=== PATIENT | female | born 1945 | race Caucasian/White ===

== ENCOUNTER 2016-11-04 10:31 | Emergency (ER) | payer MEDICARE ==
[~2016-11-04] VITALS: Ht 157.5 cm; Wt 77.7 kg
[~2016-11-04 10:31] MED LIST: ALBU90AE INH; ALBUTEROL INH; ALPR0.5T6 PO; AMLO5TAB2 PO; AMOX1TAB12 PO; ASPI-496 PO; ATOR40TA78 PO; AZIT500T4 PO; BACI28.33 TP; CARV25TA12 PO; CEFD300C2 PO; CHOL20003 PO; CLON0.3T PO; CYAN100063 PO; ERGO2000 PO; ERGO500017 PO; FAMO-79 PO; FENO145T32 PO; FURO-92 PO; Furosemide PO; GUAI10LI PO; HYDR-3240 PO; HYOS0.375 PO; LABE100T3 PO; LASIX PO; LINA5TAB PO; LISI40TA PO; MAGN400T7 PO; METF500T27 PO; METO5TAB5 PO; ONDA4TAB7 PO; PANT40TA5 PO; POTA20TA14 PO; PRED5TAB PO; SEVE800T PO; UBID200C4 PO
[2016-11-04] MEDS ORDERED: ALPR-475 PO (11:34)
[2016-11-04] MEDS ORDERED: UBID100C11 PO (11:34)
[2016-11-04] MEDS ORDERED: FURO40TA6 PO (11:34)
[2016-11-04] MEDS ORDERED: ALBU2.5V NEB (11:34)
[2016-11-04] MEDS ORDERED: DIAZEPAM 5 MG TABLET PO ONE (12:00)
[2016-11-04] MEDS ORDERED: OXYcodone/APAP 5/325MG TABLET PO ONE (12:00)
[2016-11-04] MEDS ORDERED: DIAZEPAM 5 MG TABLET ONE (12:04)
[2016-11-04] MEDS ORDERED: OXYcodone/APAP 5/325MG TABLET ONE (12:05)
[2016-11-04 13:53] VITALS: BP 115/41
== END 2016-11-04 14:17 | disposition home or self-care (01) ==
LOC: ED 12:37
DX: M54.16 Radiculopathy, lumbar region (principal); M79.652 Pain in left thigh; I11.0 Hypertensive heart disease with heart failure; I50.9 Heart failure, unspecified; E11.9 Type 2 diabetes mellitus without complications; E16.2 Hypoglycemia, unspecified; E78.00 Pure hypercholesterolemia, unspecified; K21.9 Gastro-esophageal reflux disease without esophagitis; Z90.49 Acquired absence of other specified parts of digestive tract
CPT/HCPCS: 72131; 99284

== ENCOUNTER 2016-11-13 04:55 | Inpatient (IN) | payer MEDICARE ==
[~2016-11-13] VITALS: Ht 157.5 cm; Wt 75.0 kg
[2016-11-13] VITALS (7 sets, daily range): BP systolic 115–143; BP diastolic 53–81
[~2016-11-13 04:55] MED LIST changes: +ALBU2.5V NEB; +ALPR-475 PO; +FURO40TA6 PO; +UBID100C11 PO
[2016-11-13] MEDS ORDERED: PANTOPRAZOLE 80 MG in SODIUM CHLORIDE 0.9% 50 ML IVPB ONE (05:15)
[2016-11-13] MEDS ORDERED: SODIUM CHLORIDE 0.9% 1,000 ML IV ONE (05:15)
[2016-11-13] MEDS ORDERED: SODIUM CHLORIDE 0.9% 1,000ML IVBOLUS ONE (05:30)
[2016-11-13] MEDS ORDERED: SODIUM CHLORIDE FLUSH 10ML SYR IVF ONE (05:30)
[2016-11-13 05:44] LABS: HEMOGLOBIN 8.3 g/dL (11.7-16.4)
[2016-11-13 05:55] LABS: BLOOD UREA NITROGEN 38 mg/dL (7-18)
[2016-11-13 05:59] LABS: ASPARTATE AMINO TRANSFERASE 25 U/L (15-37)
[2016-11-13] MEDS ORDERED: GABA300C10 PO (08:05)
[2016-11-13] MEDS ORDERED: [UNRECOGNIZED DRUG - OTHER] (08:07)
[2016-11-13] MEDS: GABAPENTIN 300 MG CAPSULE PO SCH ×3 (09:30→22:09)
[2016-11-13] MEDS ORDERED: MOVIPREP POWDER 1 PREP KIT PO ONE (09:30)
[2016-11-13] MEDS: PANTOPRAZOLE 40 MG IV IVPush SCH ×2 (10:00→22:06)
[2016-11-13] MEDS ORDERED: DOCUSATE 100 MG CAPSULE PO PRN (10:00)
[2016-11-13] MEDS ORDERED: LABETALOL 5MG/ML, 20ML IV PRN (10:00)
[2016-11-13] MEDS ORDERED: HYDROcodone/APAP 5/325 TABLET PO PRN (10:00)
[2016-11-13] MEDS ORDERED: MORPHINE SULFATE 4 MG/ML, 1ML IVPush PRN (10:00)
[2016-11-13] MEDS ORDERED: ALBUTEROL SULFATE 2.5MG/0.5ML NPPB PRN (10:00)
[2016-11-13] MEDS: SEVELAMER 800MG TABLET PO SCH ×2 (11:00→15:49)
[2016-11-13 11:09] LABS: HEMOGLOBIN 7.3 g/dL (11.7-16.4)
[2016-11-13] MEDS ORDERED: ARANESP 100 MCG/ML **ESRD SQ SCH (12:00)
[2016-11-13 12:31] LABS: PTH INTACT INTERPRETATION ** Comment **
[2016-11-13 12:55] LABS: PARATHYROID HORMONE INTACT 178.8 pg/mL (14-72)
[2016-11-13] MEDS: GUAIFENESIN/DM 200-20MG, 10ML UDC PO PRN (15:49)
[2016-11-13] MEDS: ARANESP 100 MCG/ML **ESRD SQ SCH (15:50)
[2016-11-13 17:38] LABS: HEMOGLOBIN 8.7 g/dL (11.7-16.4)
[2016-11-13] MEDS: ATORVASTATIN 40 MG TABLET PO SCH (20:56)
[2016-11-13] MEDS: CARVEDILOL 25 MG TABLET PO SCH ×2 (20:56→21:00)
[2016-11-13] MEDS: PROAIR INH SCH (20:57)
[2016-11-13] MEDS: [UNRECOGNIZED DRUG - OTHER] INH SCH (20:57)
[2016-11-13] MEDS ORDERED: GABAPENTIN 300 MG CAPSULE PO SCH (21:00)
[2016-11-13 23:58] LABS: HEMOGLOBIN 9.6 g/dL (11.7-16.4)
[2016-11-14 02:27] VITALS: BP 147/70
[2016-11-14 05:38] LABS: BLOOD UREA NITROGEN 23 mg/dL (7-18)
[2016-11-14 05:43] LABS: ASPARTATE AMINO TRANSFERASE 26 U/L (15-37)
[2016-11-14] MEDS: SEVELAMER 800MG TABLET PO SCH ×3 (07:00→18:16)
[2016-11-14 07:14] VITALS: BP 142/74
[2016-11-14] MEDS ORDERED: PROPOFOL 10 MG/ML, 50ML ONE (08:00)
[2016-11-14] MEDS ORDERED: DILTIAZEM 5 MG/ML, 5ML ONE (08:34)
[2016-11-14] MEDS ORDERED: DILTIAZEM 5 MG/ML, 5ML IVPush ONE ×2 (09:00)
[2016-11-14] MEDS: GABAPENTIN 300 MG CAPSULE PO SCH ×2 (09:27→22:41)
[2016-11-14] MEDS: CARVEDILOL 25 MG TABLET PO SCH ×2 (09:27→21:00)
[2016-11-14] MEDS: [UNRECOGNIZED DRUG - OTHER] INH SCH ×2 (09:28→21:00)
[2016-11-14] MEDS: PROAIR INH SCH ×2 (09:28→21:00)
[2016-11-14 10:00] LABS: HEP B SURF. AB < 3.1 mIU/mL (0.0-10.0)
[2016-11-14] MEDS ORDERED: FILTER 0.22 MICRON FOR AMIODARONE IV PRN (10:00)
[2016-11-14] MEDS ORDERED: AMIODARONE 150 MG in DEXTROSE 5% 100 ML IV ONE ×2 (10:00→14:00)
[2016-11-14] MEDS: PANTOPRAZOLE 40 MG IV IVPush SCH ×2 (10:29→22:52)
[2016-11-14] MEDS: AMIODARONE 900 MG in DEXTROSE 5% 482 ML IV PRN (10:43)
[2016-11-14] MEDS: GUAIFENESIN/DM 200-20MG, 10ML UDC PO PRN (11:15)
[2016-11-14] MEDS: INSULIN ASPART 100 UNITS/ML, PEN SQ-INSULIN SCH ×3 (11:16→21:00)
[2016-11-14 12:46] VITALS: BP 148/79
[2016-11-14 18:45] VITALS: BP 93/63
[2016-11-14 22:38] VITALS: BP 103/63
[2016-11-14] MEDS: ATORVASTATIN 40 MG TABLET PO SCH (22:41)
[2016-11-15 00:52] VITALS: BP_SYST 87; BP_SYST 96; BP_DIAS 45; BP_DIAS 59
[2016-11-15] MEDS: GUAIFENESIN/DM 200-20MG, 10ML UDC PO PRN ×3 (03:45→22:58)
[2016-11-15 05:48] LABS: BLOOD UREA NITROGEN 31 mg/dL (7-18)
[2016-11-15 07:59] VITALS: BP 86/58
[2016-11-15] MEDS: INSULIN ASPART 100 UNITS/ML, PEN SQ-INSULIN SCH ×4 (08:28→20:52)
[2016-11-15] MEDS: SEVELAMER 800MG TABLET PO SCH ×3 (08:59→16:27)
[2016-11-15] MEDS: CARVEDILOL 25 MG TABLET PO SCH ×3 (08:59→20:51)
[2016-11-15] MEDS: GABAPENTIN 300 MG CAPSULE PO SCH ×2 (09:00→20:50)
[2016-11-15] MEDS: GUAIFENESIN 200 MG TABLET PO SCH ×2 (09:00→20:51)
[2016-11-15] MEDS: PANTOPRAZOLE 40 MG IV IVPush SCH ×2 (09:00→20:51)
[2016-11-15] MEDS: [UNRECOGNIZED DRUG - OTHER] INH SCH ×2 (09:01→20:51)
[2016-11-15] MEDS: PROAIR INH SCH ×2 (09:01→20:51)
[2016-11-15] MEDS ORDERED: AMIODARONE 150 MG in DEXTROSE 5% 100 ML IV ONE ×2 (11:30→16:00)
[2016-11-15 13:10] VITALS: BP 116/77
[2016-11-15] MEDS: AMIODARONE 900 MG in DEXTROSE 5% 482 ML IV PRN (13:12)
[2016-11-15 14:01] VITALS: BP 113/66
[2016-11-15 19:44] VITALS: BP 94/66
[2016-11-15] MEDS: ATORVASTATIN 40 MG TABLET PO SCH (20:50)
[2016-11-16] VITALS (9 sets, daily range): BP systolic 89–132; BP diastolic 52–77
[2016-11-16 05:42] LABS: BLOOD UREA NITROGEN 38 mg/dL (7-18)
[2016-11-16 05:44] LABS: HEMOGLOBIN 8.1 g/dL (11.7-16.4)
[2016-11-16] MEDS: INSULIN ASPART 100 UNITS/ML, PEN SQ-INSULIN SCH ×4 (07:00→21:00)
[2016-11-16] MEDS: SEVELAMER 800MG TABLET PO SCH ×3 (08:10→16:26)
[2016-11-16] MEDS: PROAIR INH SCH ×2 (09:00→21:00)
[2016-11-16] MEDS: [UNRECOGNIZED DRUG - OTHER] INH SCH ×2 (09:00→21:00)
[2016-11-16] MEDS: GABAPENTIN 300 MG CAPSULE PO SCH ×2 (09:54→21:51)
[2016-11-16] MEDS: GUAIFENESIN 200 MG TABLET PO SCH ×2 (09:54→21:52)
[2016-11-16] MEDS: PANTOPRAZOLE 40 MG IV IVPush SCH ×2 (09:54→23:35)
[2016-11-16] MEDS: CARVEDILOL 25 MG TABLET PO SCH ×2 (09:54→21:51)
[2016-11-16] MEDS: AMIODARONE 200 MG TABLET PO SCH ×2 (12:07→21:52)
[2016-11-16] MEDS: ATORVASTATIN 40 MG TABLET PO SCH (21:51)
[2016-11-17 01:55] VITALS: BP 112/69
[2016-11-17 05:18] LABS: HEMOGLOBIN 7.5 g/dL (11.7-16.4)
[2016-11-17 05:31] LABS: BLOOD UREA NITROGEN 18 mg/dL (7-18)
[2016-11-17] MEDS: INSULIN ASPART 100 UNITS/ML, PEN SQ-INSULIN SCH ×4 (07:00→21:00)
[2016-11-17 07:18] VITALS: BP 107/64
[2016-11-17] MEDS: SEVELAMER 800MG TABLET PO SCH ×3 (08:02→16:47)
[2016-11-17] MEDS: [UNRECOGNIZED DRUG - OTHER] INH SCH ×2 (09:00→21:00)
[2016-11-17] MEDS: PROAIR INH SCH ×2 (09:00→21:00)
[2016-11-17] MEDS: GUAIFENESIN 200 MG TABLET PO SCH ×2 (10:22→21:15)
[2016-11-17] MEDS: PANTOPRAZOLE 40 MG IV IVPush SCH ×2 (10:22→21:15)
[2016-11-17] MEDS: AMIODARONE 200 MG TABLET PO SCH ×2 (10:23→21:16)
[2016-11-17] MEDS: CARVEDILOL 25 MG TABLET PO SCH ×2 (10:23→21:00)
[2016-11-17] MEDS: GABAPENTIN 300 MG CAPSULE PO SCH ×2 (10:23→21:16)
[2016-11-17 13:33] VITALS: BP 118/65
[2016-11-17] MEDS: ONDANSETRON 2MG/ML, 2ML IVP PRN (14:46)
[2016-11-17 18:31] VITALS: BP 112/64
[2016-11-17 21:12] VITALS: BP 110/62
[2016-11-17] MEDS: ATORVASTATIN 40 MG TABLET PO SCH (21:16)
[2016-11-17 22:30] VITALS: BP 98/60
[2016-11-18 02:09] VITALS: BP_SYST 101; BP_SYST 153; BP_DIAS 57; BP_DIAS 71
[2016-11-18 05:33] LABS: HEMOGLOBIN 7.5 g/dL (11.7-16.4)
[2016-11-18 05:36] LABS: BLOOD UREA NITROGEN 32 mg/dL (7-18)
[2016-11-18 06:07] LABS: ANISOCYTOSIS 1+; POLYCHROMASIA 1+; SPHEROCYTES 1+
[2016-11-18 06:09] LABS: MICROCYTOSIS 1+
[2016-11-18] MEDS: INSULIN ASPART 100 UNITS/ML, PEN SQ-INSULIN SCH ×4 (07:00→20:32)
[2016-11-18 07:44] VITALS: BP 133/67
[2016-11-18] MEDS: GABAPENTIN 300 MG CAPSULE PO SCH ×2 (08:08→20:30)
[2016-11-18] MEDS: AMIODARONE 200 MG TABLET PO SCH ×2 (08:08→20:30)
[2016-11-18] MEDS: GUAIFENESIN 200 MG TABLET PO SCH ×2 (08:08→20:32)
[2016-11-18] MEDS: SEVELAMER 800MG TABLET PO SCH ×3 (08:08→16:44)
[2016-11-18] MEDS: CARVEDILOL 25 MG TABLET PO SCH ×2 (08:09→21:00)
[2016-11-18] MEDS: PROAIR INH SCH ×2 (08:09→20:29)
[2016-11-18] MEDS: [UNRECOGNIZED DRUG - OTHER] INH SCH ×2 (08:09→20:29)
[2016-11-18 12:06] VITALS: BP 139/64
[2016-11-18 12:20] VITALS: BP 143/67
[2016-11-18] MEDS: ONDANSETRON 2MG/ML, 2ML IVP PRN (15:20)
[2016-11-18] MEDS: PANTOPROZOLE 40MG TABLET PO SCH ×2 (15:48→20:30)
[2016-11-18] MEDS: COLCHICINE 0.6 MG TABLET PO SCH (18:14)
[2016-11-18 19:20] VITALS: BP 96/67
[2016-11-18] MEDS: ATORVASTATIN 40 MG TABLET PO SCH (20:30)
[2016-11-19 02:40] VITALS: BP 117/67
[2016-11-19] MEDS: INSULIN ASPART 100 UNITS/ML, PEN SQ-INSULIN SCH ×4 (07:00→20:49)
[2016-11-19 07:03] VITALS: BP 139/72
[2016-11-19] MEDS: PANTOPROZOLE 40MG TABLET PO SCH ×2 (07:57→21:11)
[2016-11-19] MEDS: SEVELAMER 800MG TABLET PO SCH ×3 (07:57→15:59)
[2016-11-19] MEDS: PROAIR INH SCH ×2 (09:00→21:00)
[2016-11-19] MEDS: [UNRECOGNIZED DRUG - OTHER] INH SCH ×2 (09:00→21:00)
[2016-11-19] MEDS ORDERED: ERGOCALCIFEROL 50,000 UNIT CAPSULE PO SCH (10:00)
[2016-11-19 10:18] LABS: HEMOGLOBIN 8.7 g/dL (11.7-16.4)
[2016-11-19] MEDS: GABAPENTIN 300 MG CAPSULE PO SCH ×2 (10:23→21:11)
[2016-11-19] MEDS: CARVEDILOL 25 MG TABLET PO SCH ×2 (10:23→21:10)
[2016-11-19] MEDS: AMIODARONE 200 MG TABLET PO SCH ×2 (10:23→21:10)
[2016-11-19] MEDS: GUAIFENESIN 200 MG TABLET PO SCH ×2 (10:23→21:11)
[2016-11-19] MEDS: COLCHICINE 0.6 MG TABLET PO SCH (10:23)
[2016-11-19 13:00] VITALS: BP 88/57
[2016-11-19 19:31] VITALS: BP 109/63
[2016-11-19] MEDS: ATORVASTATIN 40 MG TABLET PO SCH (21:10)
[2016-11-20 01:14] VITALS: BP 171/66
[2016-11-20 01:57] VITALS: BP 117/68
[2016-11-20] MEDS: INSULIN ASPART 100 UNITS/ML, PEN SQ-INSULIN SCH ×4 (07:00→21:00)
[2016-11-20 07:25] VITALS: BP 131/72
[2016-11-20] MEDS: PANTOPROZOLE 40MG TABLET PO SCH ×2 (08:05→22:05)
[2016-11-20] MEDS: SEVELAMER 800MG TABLET PO SCH ×3 (08:57→17:20)
[2016-11-20] MEDS: COLCHICINE 0.6 MG TABLET PO SCH (08:57)
[2016-11-20] MEDS: GUAIFENESIN 200 MG TABLET PO SCH ×2 (08:57→22:05)
[2016-11-20] MEDS: [UNRECOGNIZED DRUG - OTHER] INH SCH ×2 (08:58→21:00)
[2016-11-20] MEDS: CARVEDILOL 25 MG TABLET PO SCH ×2 (08:58→22:04)
[2016-11-20] MEDS: PROAIR INH SCH ×2 (08:58→21:00)
[2016-11-20] MEDS: ONDANSETRON 2MG/ML, 2ML IVP PRN (10:55)
[2016-11-20] MEDS: GABAPENTIN 300 MG CAPSULE PO SCH ×2 (12:50→22:04)
[2016-11-20] MEDS: AMIODARONE 200 MG TABLET PO SCH ×2 (12:51→22:04)
[2016-11-20 13:12] VITALS: BP 159/72
[2016-11-20] MEDS: ARANESP 100 MCG/ML **ESRD SQ SCH (17:19)
[2016-11-20 19:45] VITALS: BP 146/59
[2016-11-20] MEDS: ATORVASTATIN 40 MG TABLET PO SCH (22:04)
[2016-11-21 02:40] VITALS: BP 134/55
[2016-11-21] MEDS: INSULIN ASPART 100 UNITS/ML, PEN SQ-INSULIN SCH ×2 (07:00→11:00)
[2016-11-21] MEDS: PANTOPROZOLE 40MG TABLET PO SCH (07:30)
[2016-11-21 07:40] VITALS: BP 111/67
[2016-11-21] MEDS: SEVELAMER 800MG TABLET PO SCH ×2 (08:00→12:55)
[2016-11-21] MEDS: PROAIR INH SCH (09:00)
[2016-11-21] MEDS: [UNRECOGNIZED DRUG - OTHER] INH SCH (09:00)
[2016-11-21] MEDS: GABAPENTIN 300 MG CAPSULE PO SCH (09:09)
[2016-11-21] MEDS: COLCHICINE 0.6 MG TABLET PO SCH (09:10)
[2016-11-21] MEDS: AMIODARONE 200 MG TABLET PO SCH (09:10)
[2016-11-21] MEDS: GUAIFENESIN 200 MG TABLET PO SCH (09:10)
[2016-11-21] MEDS: CARVEDILOL 25 MG TABLET PO SCH (09:11)
[2016-11-21] MEDS ORDERED: ALBU8.5H3 INH (12:47)
[2016-11-21] MEDS ORDERED: PANT40TA5 PO (12:47)
[2016-11-21] MEDS ORDERED: Tramadol Hcl PO (12:47)
[2016-11-21] MEDS ORDERED: Darbepoetin Alfa In Polysorbat SQ (12:47)
[2016-11-21] MEDS ORDERED: ERGO500017 PO (12:47)
[2016-11-21] MEDS ORDERED: AMIO200T42 PO (12:47)
[2016-11-21] MEDS ORDERED: COLC0.6T37 PO (12:47)
[2016-11-23] MEDS ORDERED: COLCHICINE 0.6 MG TABLET PO SCH (09:00)
== END 2016-11-21 15:40 | disposition home or self-care (01) | DRG 377 ==
LOC: ED 05:24 → EDIP 06:31 → 4NOR 10:33 → 4WST 12:34
PROVIDERS: ADMIT Internal Medicine; ATTEND Family Medicine
PROC: 5A1D60Z (ICD-10-PCS; 2016-11-14)
PROC: 0DJD8ZZ Inspection of Lower Intestinal Tract, Via Natural or Artificial Opening Endoscopic (ICD-10-PCS; principal; 2016-11-14 08:00)
PROC: 30233N1 Transfusion of Nonautologous Red Blood Cells into Peripheral Vein, Percutaneous Approach (ICD-10-PCS; 2016-11-18)
PROC: 30233N1 Transfusion of Nonautologous Red Blood Cells into Peripheral Vein, Percutaneous Approach (ICD-10-PCS; 2016-11-18)
DX: K57.31 Diverticulosis of large intestine without perforation or abscess with bleeding (principal); N18.6 End stage renal disease; E43 Unspecified severe protein-calorie malnutrition; I50.32 Chronic diastolic (congestive) heart failure; I13.2 Hypertensive heart and chronic kidney disease with heart failure and with stage 5 chronic kidney disease, or end stage renal disease; D63.1 Anemia in chronic kidney disease; E83.51 Hypocalcemia; E87.6 Hypokalemia; E53.8 Deficiency of other specified B group vitamins; I05.2 Rheumatic mitral stenosis with insufficiency; I48.91 Unspecified atrial fibrillation; E11.22 Type 2 diabetes mellitus with diabetic chronic kidney disease; E78.5 Hyperlipidemia, unspecified; I27.2 Other secondary pulmonary hypertension; I80.8 Phlebitis and thrombophlebitis of other sites; J20.9 Acute bronchitis, unspecified; K59.00 Constipation, unspecified; K64.8 Other hemorrhoids; M10.9 Gout, unspecified; M19.90 Unspecified osteoarthritis, unspecified site; M48.00 Spinal stenosis, site unspecified; M54.30 Sciatica, unspecified side; F41.9 Anxiety disorder, unspecified; Z96.653 Presence of artificial knee joint, bilateral; Z87.891 Personal history of nicotine dependence; Z68.30 Body mass index [BMI] 30.0-30.9, adult; Z99.2 Dependence on renal dialysis; Z79.899 Other long term (current) drug therapy; Z90.49 Acquired absence of other specified parts of digestive tract
CPT/HCPCS: 36415; 71010; 80048; 80053; 82306; 82310; 82728; 82962; 83540; 83550; 83605; 83690; 83735; 83970; 84100; 84550; 85014; 85018; 85025; 85610; 85730; 86704; 86706; 86850; 86900; 86902; 86922; 86923; 87340; 93005; 93990; 96365; 96366; J1815; J2405; J2704; C9113; J0282; J0882; J7030; J7060; P9016

== ENCOUNTER 2016-12-25 13:33 | Emergency (ER) | payer MEDICARE ==
[~2016-12-25] VITALS: Ht 157.5 cm; Wt 73.2 kg
[~2016-12-25 13:33] MED LIST changes: +ALBU8.5H3 INH; +AMIO200T42 PO; -AZIT500T4 PO; +AZIT500T77 PO; -CEFD300C2 PO; +CEFD300C37 PO; -CLON0.3T PO; +CLON0.3T47 PO; +COLC0.6T37 PO; +Darbepoetin Alfa In Polysorbat SQ; +GABA300C10 PO; +Tramadol Hcl PO; +[UNRECOGNIZED DRUG - OTHER]
[2016-12-25] MEDS ORDERED: ONDANSETRON ODT 4 MG ONE (14:21)
[2016-12-25] MEDS ORDERED: ONDANSETRON ODT 4 MG PO ONE (14:30)
[2016-12-25 15:03] LABS: ASPARTATE AMINO TRANSFERASE 19 U/L (15-37); BLOOD UREA NITROGEN 47 mg/dL (7-18)
[2016-12-25 16:22] VITALS: BP 125/55
== END 2016-12-25 16:25 | disposition home or self-care (01) ==
LOC: ED 15:17
DX: R11.0 Nausea (principal); I12.9 Hypertensive chronic kidney disease with stage 1 through stage 4 chronic kidney disease, or unspecified chronic kidney disease; N18.9 Chronic kidney disease, unspecified; G89.29 Other chronic pain; M54.9 Dorsalgia, unspecified; Z99.2 Dependence on renal dialysis; K21.9 Gastro-esophageal reflux disease without esophagitis; I11.0 Hypertensive heart disease with heart failure; I50.9 Heart failure, unspecified
CPT/HCPCS: 36415; 71010; 80053; 83690; 85025; 99285; Q0162

== ENCOUNTER 2017-01-18 07:50 | Day surgery (SDC) | payer MEDICARE ==
[2017-01-18] MEDS ORDERED: HEPARIN 1,000 UNITS/ML, 10ML ONE (08:53)
[2017-01-18] MEDS ORDERED: BUPIVACAINE/PF 0.5% ONE (08:53)
[2017-01-18] MEDS ORDERED: PROTAMINE SULFATE 10 MG/ML, 5ML ONE (08:53)
[2017-01-18] MEDS ORDERED: THROMBIN 5,000 UNIT VIAL TP ONE (08:54)
[2017-01-18] MEDS ORDERED: FENTANYL PF 100 MCG/2ML ONE ×2 (10:44→12:04)
[2017-01-18] MEDS ORDERED: DEXAMETHASONE 4 MG/ML, 1ML ONE (10:46)
[2017-01-18] MEDS ORDERED: PHENYLEPHRINE 10 MG/ML ONE (10:46)
[2017-01-18] MEDS ORDERED: ONDANSETRON 2MG/ML, 2ML ONE (10:46)
[2017-01-18] MEDS ORDERED: PROPOFOL 10 MG/ML, 20ML ONE (10:46)
[2017-01-18] MEDS ORDERED: CEFAZOLIN 1,000 MG ONE (10:46)
[2017-01-18] MEDS ORDERED: OXYcodone 5 MG/5 ML ORAL.SOL UDC ONE (12:04)
[2017-01-18] MEDS: FENTANYL PF 100 MCG/2ML IV PRN (12:06)
[2017-01-19] MEDS: FENTANYL PF 100 MCG/2ML IV PRN ×3 (12:17→12:30)
[2017-01-19] MEDS ORDERED: OXYcodone 5 MG/5 ML ORAL.SOL UDC PO PRN (16:00)
[2017-01-19] MEDS ORDERED: DIAZEPAM 5 MG/ML, 10ML VIAL IV ONE (16:30)
[2017-01-20] MEDS ORDERED: SODIUM CHLORIDE 0.9% 1,000 ML IV SCH ×2 (13:30)
== END 2017-01-18 14:40 | disposition home or self-care (01) ==
LOC: OR 07:50
PROVIDERS: ATTEND Surgery Vascular Surgery
DX: T82.590A Other mechanical complication of surgically created arteriovenous fistula, initial encounter (principal); E11.22 Type 2 diabetes mellitus with diabetic chronic kidney disease; I13.2 Hypertensive heart and chronic kidney disease with heart failure and with stage 5 chronic kidney disease, or end stage renal disease; N18.6 End stage renal disease; I50.9 Heart failure, unspecified; Z99.2 Dependence on renal dialysis; I48.91 Unspecified atrial fibrillation; Y83.2 Surgical operation with anastomosis, bypass or graft as the cause of abnormal reaction of the patient, or of later complication, without mention of misadventure at the time of the procedure
CPT/HCPCS: 36832; 93005; J0690; J1100; J1644; J2370; J2405; J2704; J3010; J3360; J2720; J3490

== ENCOUNTER 2017-02-12 13:55 | Emergency (ER) | payer MEDICARE ==
[~2017-02-12] VITALS: Ht 157.5 cm; Wt 70.0 kg
[~2017-02-12 13:55] MED LIST changes: +CHOL2000 PO; -CHOL20003 PO
[2017-02-12] MEDS ORDERED: MORPHINE SULFATE 4 MG/ML, 1ML IVPush PRN (14:30)
[2017-02-12] MEDS ORDERED: SODIUM CHLORIDE FLUSH 10ML SYR IVF ONE (14:30)
[2017-02-12] MEDS ORDERED: ONDANSETRON 2MG/ML, 2ML IVPush ONE (14:30)
[2017-02-12 15:04] LABS: BLOOD UREA NITROGEN 60 mg/dL (7-18)
[2017-02-12] MEDS ORDERED: MORPHINE SULFATE 4 MG/ML, 1ML ONE (15:05)
[2017-02-12] MEDS ORDERED: ONDANSETRON 2MG/ML, 2ML ONE (15:05)
[2017-02-12] MEDS ORDERED: DIAZEPAM 5 MG/ML, 10ML VIAL IVPush ONE (16:30)
[2017-02-12] MEDS ORDERED: DIAZEPAM 5 MG/ML, 2ML IVPush ONE (16:30)
[2017-02-12] MEDS ORDERED: HYDROmorphone 1 MG/ML, 1ML ONE ×2 (17:17→17:33)
[2017-02-12] MEDS: HYDROmorphone 1 MG/ML, 1ML IVPush PRN ×2 (17:20→17:36)
[2017-02-12 18:02] VITALS: BP 165/55
== END 2017-02-12 18:06 | disposition home or self-care (01) ==
LOC: ED 16:13
DX: M25.552 Pain in left hip (principal); M25.562 Pain in left knee; M25.572 Pain in left ankle and joints of left foot; M54.16 Radiculopathy, lumbar region; I10 Essential (primary) hypertension; E11.9 Type 2 diabetes mellitus without complications; Z90.49 Acquired absence of other specified parts of digestive tract
CPT/HCPCS: 36415; 74174; 80048; 82040; 85025; 85610; 85730; 96374; 96375; 99285; J1170; J2405; J3360

== ENCOUNTER 2017-02-16 14:25 | Inpatient (IN) | payer MEDICARE ==
[~2017-02-16] VITALS: Ht 157.5 cm; Wt 74.8 kg
[2017-02-16] MEDS ORDERED: DIPHENHYDRAMINE 50 MG/ML, 1ML IVPush ONE (15:00)
[2017-02-16] MEDS ORDERED: SODIUM CHLORIDE FLUSH 10ML SYR IVF ONE (15:00)
[2017-02-16] MEDS ORDERED: DIAZEPAM 5 MG/ML, 2ML IVPush ONE (15:00)
[2017-02-16 15:23] LABS: BLOOD UREA NITROGEN 49 mg/dL (7-18)
[2017-02-16] MEDS ORDERED: DIPHENHYDRAMINE 50 MG/ML, 1ML ONE (15:26)
[2017-02-16] MEDS ORDERED: HYDROmorphone 1 MG/ML, 1ML ONE ×2 (15:26→16:10)
[2017-02-16] MEDS: HYDROmorphone 1 MG/ML, 1ML IVPush PRN ×2 (15:36→16:16)
[2017-02-16] MEDS ORDERED: HYDROmorphone 2 MG/ML, 1ML ONE (16:56)
[2017-02-16] MEDS ORDERED: hydrALAzine 20 MG/ML, 1ML ONE (16:57)
[2017-02-16] MEDS ORDERED: HYDROmorphone 2 MG/ML, 1ML IVPush PRN (17:00)
[2017-02-16] MEDS ORDERED: hydrALAzine 20 MG/ML, 1ML IV ONE (17:00)
[2017-02-16] MEDS ORDERED: GABAPENTIN 300 MG CAPSULE PO ONE (17:00)
[2017-02-16] MEDS ORDERED: FURO40TA6 PO (17:01)
[2017-02-16] MEDS ORDERED: LEVO50TA5 PO (17:01)
[2017-02-16] MEDS ORDERED: PANT20TA3 PO (17:01)
[2017-02-16] MEDS ORDERED: [UNRECOGNIZED DRUG - OTHER] PO (17:01)
[2017-02-16] MEDS ORDERED: [UNRECOGNIZED DRUG - OTHER] PO PRN (18:00)
[2017-02-16] MEDS ORDERED: LABETALOL 5MG/ML, 20ML IVPush PRN (18:00)
[2017-02-16] MEDS: SEVELAMER 800MG TABLET PO SCH ×2 (18:00→20:39)
[2017-02-16] MEDS ORDERED: ONDANSETRON ODT 4 MG PO PRN (18:00)
[2017-02-16] MEDS ORDERED: ONDANSETRON 2MG/ML, 2ML IVPush PRN (18:00)
[2017-02-16] MEDS ORDERED: MAGNESIUM HYDROXIDE 8%, 30ML UDC PO PRN (18:30)
[2017-02-16] MEDS ORDERED: HYDROmorphone PCA 30 MG/30 ML IV PRN (18:30)
[2017-02-16] MEDS ORDERED: DEXAMETHASONE 4 MG/ML, 1ML IVPush ONE (19:00)
[2017-02-16] MEDS ORDERED: DARBEPOETIN 100 MCG/ML SQ SCH (20:00)
[2017-02-16] MEDS: AMIODARONE 200 MG TABLET PO SCH (20:18)
[2017-02-16] MEDS: ATORVASTATIN 40 MG TABLET PO SCH (20:18)
[2017-02-16] MEDS: CARVEDILOL 25 MG TABLET PO SCH (20:18)
[2017-02-16 20:24] VITALS: BP 114/65
[2017-02-16] MEDS ORDERED: GABAPENTIN 300 MG CAPSULE PO SCH (21:00)
[2017-02-16] MEDS: GABAPENTIN 300 MG CAPSULE PO SCH (21:00)
[2017-02-16] MEDS: ALBUTEROL SULFATE 2.5 MG/3 ML NEB SCH (21:00)
[2017-02-16] MEDS ORDERED: LEVOTHYROXINE 50 MCG TABLET PO SCH (21:00)
[2017-02-16] MEDS: INSULIN ASPART 100 UNITS/ML, PEN SQ-INSULIN SCH (22:02)
[2017-02-16] MEDS ORDERED: LEVOTHYROXINE 50 MCG MC SCH (23:30)
[2017-02-17 02:00] VITALS: BP 178/65
[2017-02-17] MEDS: DEXAMETHASONE 4 MG/ML, 1ML IVPush SCH ×2 (03:02→09:50)
[2017-02-17 05:15] LABS: ASPARTATE AMINO TRANSFERASE 25 U/L (15-37); BLOOD UREA NITROGEN 65 mg/dL (7-18)
[2017-02-17] MEDS: ALBUTEROL SULFATE 2.5 MG/3 ML NEB SCH ×4 (06:00→21:00)
[2017-02-17] MEDS ORDERED: HYDROmorphone PCA 30 MG/30 ML IV PRN (08:00)
[2017-02-17] MEDS: SEVELAMER 800MG TABLET PO SCH ×3 (08:25→17:56)
[2017-02-17] MEDS: SENNA/DOCUSATE TABLET PO SCH (09:00)
[2017-02-17 09:27] VITALS: BP 174/71
[2017-02-17] MEDS: GABAPENTIN 300 MG CAPSULE PO SCH ×2 (09:51→21:33)
[2017-02-17] MEDS: LEVOTHYROXINE 50 MCG TABLET PO SCH (09:51)
[2017-02-17] MEDS: CARVEDILOL 25 MG TABLET PO SCH ×2 (09:51→21:33)
[2017-02-17] MEDS: AMIODARONE 200 MG TABLET PO SCH ×2 (09:51→21:33)
[2017-02-17] MEDS: INSULIN ASPART 100 UNITS/ML, PEN SQ-INSULIN SCH ×4 (10:07→21:33)
[2017-02-17 14:27] VITALS: BP 165/74
[2017-02-17] MEDS: CYCLOBENZAPRINE 10 MG TABLET PO PRN (15:01)
[2017-02-17] MEDS: MORPHINE SULFATE 4 MG/ML, 1ML IVPush PRN (17:56)
[2017-02-17 20:00] VITALS: BP 144/52
[2017-02-17] MEDS: ATORVASTATIN 40 MG TABLET PO SCH (21:00)
[2017-02-17] MEDS: HEPARIN 5,000 UNITS/ML, 1ML SQ SCH (21:32)
[2017-02-18 01:54] VITALS: BP 156/50
[2017-02-18 05:12] LABS: BLOOD UREA NITROGEN 48 mg/dL (7-18)
[2017-02-18 05:16] LABS: ASPARTATE AMINO TRANSFERASE 22 U/L (15-37)
[2017-02-18] MEDS: ALBUTEROL SULFATE 2.5 MG/3 ML NEB SCH ×4 (06:00→21:00)
[2017-02-18] MEDS: HEPARIN 5,000 UNITS/ML, 1ML SQ SCH ×3 (06:39→23:02)
[2017-02-18] MEDS: LEVOTHYROXINE 50 MCG TABLET PO SCH (06:40)
[2017-02-18 07:10] VITALS: BP 150/52
[2017-02-18] MEDS: SEVELAMER 800MG TABLET PO SCH ×3 (08:55→15:54)
[2017-02-18] MEDS: INSULIN ASPART 100 UNITS/ML, PEN SQ-INSULIN SCH ×4 (08:56→23:01)
[2017-02-18] MEDS: SENNA/DOCUSATE TABLET PO SCH (09:00)
[2017-02-18] MEDS: CARVEDILOL 25 MG TABLET PO SCH ×2 (09:00→22:59)
[2017-02-18] MEDS: AMIODARONE 200 MG TABLET PO SCH ×2 (09:00→23:00)
[2017-02-18] MEDS: DEXAMETHASONE 4 MG TABLET PO SCH (09:03)
[2017-02-18] MEDS: GABAPENTIN 300 MG CAPSULE PO SCH ×2 (12:42→22:59)
[2017-02-18 15:10] VITALS: BP 148/57
[2017-02-18] MEDS: MORPHINE SULFATE 4 MG/ML, 1ML IVPush PRN ×2 (15:52→23:13)
[2017-02-18] MEDS: CYCLOBENZAPRINE 10 MG TABLET PO PRN (18:41)
[2017-02-18 19:25] VITALS: BP 141/62
[2017-02-18] MEDS: ATORVASTATIN 40 MG TABLET PO SCH (22:59)
[2017-02-19 02:18] VITALS: BP 131/59
[2017-02-19 05:39] LABS: BLOOD UREA NITROGEN 63 mg/dL (7-18)
[2017-02-19] MEDS: ALBUTEROL SULFATE 2.5 MG/3 ML NEB SCH ×4 (06:00→21:00)
[2017-02-19] MEDS: LEVOTHYROXINE 50 MCG TABLET PO SCH (06:34)
[2017-02-19 07:42] VITALS: BP 130/88
[2017-02-19] MEDS: SEVELAMER 800MG TABLET PO SCH ×3 (08:51→17:04)
[2017-02-19] MEDS: SENNA/DOCUSATE TABLET PO SCH (08:51)
[2017-02-19] MEDS: AMIODARONE 200 MG TABLET PO SCH ×2 (08:51→21:34)
[2017-02-19] MEDS: GABAPENTIN 300 MG CAPSULE PO SCH ×3 (08:51→17:04)
[2017-02-19] MEDS: CYCLOBENZAPRINE 10 MG TABLET PO PRN (08:51)
[2017-02-19] MEDS: CARVEDILOL 25 MG TABLET PO SCH ×2 (08:52→21:33)
[2017-02-19] MEDS: DEXAMETHASONE 4 MG TABLET PO SCH ×2 (08:52→21:00)
[2017-02-19] MEDS: HEPARIN 5,000 UNITS/ML, 1ML SQ SCH ×3 (08:53→23:27)
[2017-02-19] MEDS: INSULIN ASPART 100 UNITS/ML, PEN SQ-INSULIN SCH ×4 (09:07→21:00)
[2017-02-19] MEDS ORDERED: POLYETHYLENE GLYCOL 17 GM PACKET PO ONE (10:00)
[2017-02-19 10:04] LABS: HEP B SURF. AB < 3.1 mIU/mL (0.0-10.0)
[2017-02-19] MEDS ORDERED: CARISOPRODOL 350 MG TABLET PO PRN (11:30)
[2017-02-19] MEDS ORDERED: MORPHINE SULFATE 4 MG/ML, 1ML IVPush PRN (12:30)
[2017-02-19 13:40] VITALS: BP 106/52
[2017-02-19] MEDS ORDERED: BISACODYL 10 MG SUPP PR PRN (14:30)
[2017-02-19] MEDS: MAGNESIUM HYDROXIDE 8%, 30ML UDC PO SCH (17:11)
[2017-02-19 20:44] VITALS: BP 111/59
[2017-02-19] MEDS: ATORVASTATIN 40 MG TABLET PO SCH (21:33)
[2017-02-20 01:06] VITALS: BP 155/53
[2017-02-20] MEDS: CYCLOBENZAPRINE 10 MG TABLET PO PRN (04:43)
[2017-02-20 04:48] LABS: BLOOD UREA NITROGEN 99 mg/dL (7-18)
[2017-02-20] MEDS: ALBUTEROL SULFATE 2.5 MG/3 ML NEB SCH ×3 (06:00→16:00)
[2017-02-20] MEDS: LEVOTHYROXINE 50 MCG TABLET PO SCH (06:04)
[2017-02-20] MEDS: HEPARIN 5,000 UNITS/ML, 1ML SQ SCH ×3 (06:04→23:18)
[2017-02-20] MEDS: SEVELAMER 800MG TABLET PO SCH ×3 (08:00→17:11)
[2017-02-20] MEDS: GABAPENTIN 300 MG CAPSULE PO SCH ×3 (08:00→17:00)
[2017-02-20] MEDS: DEXAMETHASONE 4 MG TABLET PO SCH (08:01)
[2017-02-20] MEDS: CARVEDILOL 25 MG TABLET PO SCH ×2 (08:01→21:24)
[2017-02-20] MEDS: MAGNESIUM HYDROXIDE 8%, 30ML UDC PO SCH (08:01)
[2017-02-20] MEDS: SENNA/DOCUSATE TABLET PO SCH (08:01)
[2017-02-20] MEDS: AMIODARONE 200 MG TABLET PO SCH ×2 (08:01→21:25)
[2017-02-20] MEDS: INSULIN ASPART 100 UNITS/ML, PEN SQ-INSULIN SCH ×4 (08:11→21:38)
[2017-02-20 09:05] VITALS: BP 96/36
[2017-02-20 14:00] VITALS: BP 129/51
[2017-02-20 19:05] VITALS: BP 123/51
[2017-02-20] MEDS: ATORVASTATIN 40 MG TABLET PO SCH (21:24)
[2017-02-21 01:18] VITALS: BP 101/49
[2017-02-21 06:08] LABS: BLOOD UREA NITROGEN 70 mg/dL (7-18)
[2017-02-21] MEDS: HEPARIN 5,000 UNITS/ML, 1ML SQ SCH ×2 (06:45→15:00)
[2017-02-21] MEDS: LEVOTHYROXINE 50 MCG TABLET PO SCH (06:45)
[2017-02-21] MEDS: INSULIN ASPART 100 UNITS/ML, PEN SQ-INSULIN SCH ×3 (07:00→17:33)
[2017-02-21 08:06] VITALS: BP 131/52
[2017-02-21] MEDS: GABAPENTIN 300 MG CAPSULE PO SCH ×3 (08:36→17:32)
[2017-02-21] MEDS: SEVELAMER 800MG TABLET PO SCH ×3 (08:37→17:32)
[2017-02-21] MEDS: CARVEDILOL 25 MG TABLET PO SCH (08:37)
[2017-02-21] MEDS: AMIODARONE 200 MG TABLET PO SCH (08:38)
[2017-02-21] MEDS: SENNA/DOCUSATE TABLET PO SCH (08:39)
[2017-02-21] MEDS: MAGNESIUM HYDROXIDE 8%, 30ML UDC PO SCH (08:39)
[2017-02-21] MEDS ORDERED: DEXAMETHASONE 4 MG TABLET PO SCH (09:00)
[2017-02-21 15:08] VITALS: BP 104/40
[2017-02-21] MEDS ORDERED: CYCL-259 PO (16:55)
[2017-02-21] MEDS ORDERED: MORP15TA3 PO (16:55)
[2017-02-21] MEDS ORDERED: GABA300C10 PO (16:55)
[2017-02-21] MEDS ORDERED: ERGO500017 PO (16:55)
[2017-02-21] MEDS ORDERED: MAGN400O4 PO (16:55)
[2017-02-21] MEDS ORDERED: DEXA4TAB PO (16:58)
[2017-02-21] MEDS ORDERED: SENN8.6T98 PO-COUM (17:42)
[2017-02-23] MEDS ORDERED: ERGOCALCIFEROL 50,000 UNIT CAPSULE PO SCH (09:00)
[2017-02-23] MEDS ORDERED: ARANESP 25 MCG/ML **ESRD SQ SCH (20:00)
== END 2017-02-21 18:54 | disposition home or self-care (01) | DRG 551 ==
LOC: ED 15:42 → EDIP 16:38 → 4WST 18:43
PROVIDERS: ADMIT Internal Medicine; ATTEND Internal Medicine
PROC: 5A1D60Z (ICD-10-PCS; principal; 2017-02-16)
DX: M48.06 Spinal stenosis, lumbar region (principal); N18.6 End stage renal disease; D68.69 Other thrombophilia; E46 Unspecified protein-calorie malnutrition; G90.50 Complex regional pain syndrome I, unspecified; I13.2 Hypertensive heart and chronic kidney disease with heart failure and with stage 5 chronic kidney disease, or end stage renal disease; I50.32 Chronic diastolic (congestive) heart failure; Z99.2 Dependence on renal dialysis; D63.1 Anemia in chronic kidney disease; D72.829 Elevated white blood cell count, unspecified; E11.22 Type 2 diabetes mellitus with diabetic chronic kidney disease; E11.40 Type 2 diabetes mellitus with diabetic neuropathy, unspecified; E11.65 Type 2 diabetes mellitus with hyperglycemia; E78.00 Pure hypercholesterolemia, unspecified; E78.5 Hyperlipidemia, unspecified; E87.5 Hyperkalemia; K21.9 Gastro-esophageal reflux disease without esophagitis; I05.0 Rheumatic mitral stenosis; I27.2 Other secondary pulmonary hypertension; I48.91 Unspecified atrial fibrillation; R26.2 Difficulty in walking, not elsewhere classified; M10.9 Gout, unspecified; M47.9 Spondylosis, unspecified; M51.17 Intervertebral disc disorders with radiculopathy, lumbosacral region; Z96.653 Presence of artificial knee joint, bilateral; Z79.899 Other long term (current) drug therapy; Z90.49 Acquired absence of other specified parts of digestive tract
CPT/HCPCS: 36415; 72131; 72148; 80048; 80053; 80069; 81001; 82040; 82306; 82728; 82962; 83036; 83540; 83550; 83735; 83970; 84100; 84439; 84443; 85025; 85610; 85730; 86704; 86706; 87086; 87340; 96374; 96375; 96376; J0881; J1100; J1170; J1644; J1815; J0360; J1200

== ENCOUNTER 2017-02-22 14:25 | Inpatient (IN) | payer MEDICARE ==
[~2017-02-22] VITALS: Ht 157.5 cm; Wt 73.2 kg
[~2017-02-22 14:25] MED LIST changes: +CYCL-259 PO; +DEXA4TAB PO; +LEVO50TA5 PO; +MAGN400O4 PO; +MORP15TA3 PO; +PANT20TA3 PO; +SENN8.6T98 PO-COUM; +[UNRECOGNIZED DRUG - OTHER] PO
[2017-02-22] MEDS ORDERED: SODIUM CHLORIDE 0.9% 1,000ML IVBOLUS ONE (15:00)
[2017-02-22] MEDS ORDERED: SODIUM CHLORIDE FLUSH 10ML SYR IVF ONE (15:00)
[2017-02-22 15:22] LABS: BLOOD UREA NITROGEN 115 mg/dL (7-18); IS PT STATUS REG ER OR PRE ER? YES
[2017-02-22 16:36] LABS: PATH.CAST-FLAG NOT PRESENT; SPERM-FLAG NOT PRESENT; SRC-FLAG NOT PRESENT; XTAL-FLAG NOT PRESENT; YLC-FLAG NOT PRESENT
[2017-02-22] MEDS ORDERED: CEFTRIAXONE PMX 1GM/50ML 50 ML IV ONE (17:00)
[2017-02-22] MEDS ORDERED: POLYETHYLENE GLYCOL 17 GM PACKET PO PRN (17:00)
[2017-02-22] MEDS ORDERED: HEPARIN 5,000 UNITS/ML, 1ML SQ SCH (17:00)
[2017-02-22] MEDS ORDERED: CYCLOBENZAPRINE 10 MG TABLET PO PRN (17:00)
[2017-02-22] MEDS ORDERED: ONDANSETRON ODT 4 MG PO PRN (17:00)
[2017-02-22] MEDS ORDERED: LABETALOL 5MG/ML, 20ML IVPush PRN (17:00)
[2017-02-22] MEDS ORDERED: DARBEPOETIN 100 MCG/ML SQ SCH (17:00)
[2017-02-22] MEDS ORDERED: ONDANSETRON 2MG/ML, 2ML IVPush PRN (17:00)
[2017-02-22] MEDS ORDERED: ERGOCALCIFEROL 50,000 UNIT CAPSULE PO SCH (17:00)
[2017-02-22] MEDS ORDERED: CEFTRIAXONE PMX 1GM/50ML 50 ML ONE (17:14)
[2017-02-22 21:00] VITALS: BP 123/52
[2017-02-22] MEDS ORDERED: LEVOTHYROXINE 50 MCG TABLET PO SCH (21:00)
[2017-02-22] MEDS ORDERED: CARVEDILOL 25 MG TABLET PO SCH (21:00)
[2017-02-22] MEDS: ACETAMINOPHEN 325 MG TABLET PO SCH (21:14)
[2017-02-22] MEDS: CARVEDILOL 25 MG TABLET PO SCH (21:14)
[2017-02-22] MEDS: ATORVASTATIN 40 MG TABLET PO SCH (21:15)
[2017-02-22] MEDS: AMIODARONE 200 MG TABLET PO SCH (21:15)
[2017-02-23 02:00] VITALS: BP 147/56
[2017-02-23] MEDS: ACETAMINOPHEN 325 MG TABLET PO SCH ×4 (05:40→21:00)
[2017-02-23] MEDS: LEVOTHYROXINE 100 MCG TABLET PO SCH (05:40)
[2017-02-23 05:51] LABS: ASPARTATE AMINO TRANSFERASE 36 U/L (15-37)
[2017-02-23 06:13] LABS: BLOOD UREA NITROGEN 122 mg/dL (7-18)
[2017-02-23 07:50] VITALS: BP 132/71
[2017-02-23 08:32] VITALS: BP 172/65
[2017-02-23] MEDS: TEMPLATE NON-FORMULARY MED. (Linagliptin** (Tradjenta**) 5 MG) HOMEMEDPO SCH (08:45)
[2017-02-23] MEDS: AMIODARONE 200 MG TABLET PO SCH ×2 (08:45→21:00)
[2017-02-23] MEDS: SEVELAMER 800MG TABLET PO SCH ×3 (08:45→17:02)
[2017-02-23] MEDS: SENNA/DOCUSATE TABLET PO SCH (08:45)
[2017-02-23] MEDS: CARVEDILOL 25 MG TABLET PO SCH ×2 (08:45→21:00)
[2017-02-23 13:58] VITALS: BP 131/50
[2017-02-23 20:36] VITALS: BP 163/57
[2017-02-23] MEDS: ATORVASTATIN 40 MG TABLET PO SCH (21:00)
[2017-02-24 01:19] VITALS: BP 161/80
[2017-02-24 05:18] LABS: BLOOD UREA NITROGEN 57 mg/dL (7-18)
[2017-02-24] MEDS: LEVOTHYROXINE 100 MCG TABLET PO SCH (05:49)
[2017-02-24] MEDS: ACETAMINOPHEN 325 MG TABLET PO SCH ×4 (05:49→21:00)
[2017-02-24] MEDS: SEVELAMER 800MG TABLET PO SCH ×3 (07:00→16:00)
[2017-02-24 07:34] VITALS: BP_SYST 185; BP_DIAS 62; BP_DIAS 82
[2017-02-24] MEDS: SENNA/DOCUSATE TABLET PO SCH (08:42)
[2017-02-24] MEDS: TEMPLATE NON-FORMULARY MED. (Linagliptin** (Tradjenta**) 5 MG) HOMEMEDPO SCH (08:42)
[2017-02-24] MEDS: CARVEDILOL 25 MG TABLET PO SCH ×2 (09:00→21:00)
[2017-02-24] MEDS: AMIODARONE 200 MG TABLET PO SCH ×2 (09:56→21:00)
[2017-02-24 13:00] VITALS: BP 133/77
[2017-02-24] MEDS ORDERED: D5%-0.9% NACL 1,000 ML IV SCH (18:30)
[2017-02-24 19:13] VITALS: BP 173/60
[2017-02-24] MEDS: ATORVASTATIN 40 MG TABLET PO SCH (21:00)
[2017-02-24 22:30] VITALS: BP 153/76
[2017-02-25] VITALS (7 sets, daily range): BP systolic 140–182; BP diastolic 55–77
[2017-02-25] MEDS ORDERED: hydrALAzine 20 MG/ML, 1ML IV PRN ×2 (04:30→10:00)
[2017-02-25] MEDS: LEVOTHYROXINE 100 MCG TABLET PO SCH (05:51)
[2017-02-25] MEDS: ACETAMINOPHEN 325 MG TABLET PO SCH ×4 (05:51→20:00)
[2017-02-25 06:06] LABS: BLOOD UREA NITROGEN 90 mg/dL (7-18)
[2017-02-25] MEDS ORDERED: FENTANYL PF 100 MCG/2ML ONE (08:23)
[2017-02-25] MEDS ORDERED: SUCCINYLCHOLINE 20 MG/ML, 10ML ONE (08:56)
[2017-02-25] MEDS ORDERED: PROPOFOL 10 MG/ML, 20ML ONE (08:56)
[2017-02-25] MEDS: TEMPLATE NON-FORMULARY MED. (Linagliptin** (Tradjenta**) 5 MG) HOMEMEDPO SCH (09:00)
[2017-02-25] MEDS ORDERED: FENTANYL PF 100 MCG/2ML IV PRN (10:00)
[2017-02-25] MEDS ORDERED: METOPROLOL 1 MG/ML, 5ML IV PRN (10:00)
[2017-02-25] MEDS ORDERED: ONDANSETRON 2MG/ML, 2ML IVPush PRN (10:00)
[2017-02-25] MEDS ORDERED: ACETAMINOPHEN 325 MG TABLET PO PRN (10:00)
[2017-02-25] MEDS ORDERED: DARBEPOETIN 100 MCG/ML SQ SCH (10:02)
[2017-02-25] MEDS: AMIODARONE 200 MG TABLET PO SCH ×2 (12:12→20:00)
[2017-02-25] MEDS: SENNA/DOCUSATE TABLET PO SCH (12:13)
[2017-02-25] MEDS: CARVEDILOL 25 MG TABLET PO SCH (12:13)
[2017-02-25] MEDS: SEVELAMER 800MG TABLET PO SCH ×3 (12:13→18:03)
[2017-02-25] MEDS: ATORVASTATIN 40 MG TABLET PO SCH (20:00)
[2017-02-26] MEDS: CARVEDILOL 25 MG TABLET PO SCH ×2 (00:27→09:00)
[2017-02-26 02:00] VITALS: BP 147/61
[2017-02-26] MEDS ORDERED: HYDROcodone/APAP 5/325 TABLET PO ONE (03:30)
[2017-02-26 05:52] LABS: BLOOD UREA NITROGEN 30 mg/dL (7-18)
[2017-02-26] MEDS: LEVOTHYROXINE 100 MCG TABLET PO SCH (06:25)
[2017-02-26] MEDS: ACETAMINOPHEN 325 MG TABLET PO SCH ×2 (06:26→12:20)
[2017-02-26 08:00] VITALS: BP 147/59
[2017-02-26] MEDS: AMIODARONE 200 MG TABLET PO SCH (08:59)
[2017-02-26] MEDS: SEVELAMER 800MG TABLET PO SCH ×2 (08:59→12:20)
[2017-02-26] MEDS: SENNA/DOCUSATE TABLET PO SCH (08:59)
[2017-02-26] MEDS: TEMPLATE NON-FORMULARY MED. (Linagliptin** (Tradjenta**) 5 MG) HOMEMEDPO SCH (09:00)
[2017-02-26] MEDS ORDERED: LEVO100T PO (10:51)
[2017-02-26] MEDS ORDERED: ACET325T14 PO (10:51)
[2017-02-26] MEDS ORDERED: PANT40TA5 PO (10:51)
[2017-02-26] MEDS ORDERED: TRAM50TA2 PO (10:51)
[2017-02-26] MEDS ORDERED: PANTOPROZOLE 40MG TABLET PO SCH (11:00)
[2017-02-26 13:35] VITALS: BP 142/64
== END 2017-02-26 17:32 | disposition home health service (06) | DRG 70 ==
LOC: ED 16:38 → EDIP 16:54 → 4EST 19:54
PROVIDERS: ADMIT Internal Medicine; ATTEND Internal Medicine
PROC: 0T9B70Z Drainage of Bladder with Drainage Device, Via Natural or Artificial Opening (ICD-10-PCS; principal; 2017-02-22)
PROC: 5A1D60Z (ICD-10-PCS; 2017-02-23)
PROC: 0D758ZZ Dilation of Esophagus, Via Natural or Artificial Opening Endoscopic (ICD-10-PCS; 2017-02-25)
PROC: 0DB98ZX Excision of Duodenum, Via Natural or Artificial Opening Endoscopic, Diagnostic (ICD-10-PCS; 2017-02-25)
PROC: 0DB68ZX Excision of Stomach, Via Natural or Artificial Opening Endoscopic, Diagnostic (ICD-10-PCS; 2017-02-25)
PROC: 0DB58ZX Excision of Esophagus, Via Natural or Artificial Opening Endoscopic, Diagnostic (ICD-10-PCS; 2017-02-25)
DX: G93.41 Metabolic encephalopathy (principal); N18.6 End stage renal disease; I13.2 Hypertensive heart and chronic kidney disease with heart failure and with stage 5 chronic kidney disease, or end stage renal disease; D68.69 Other thrombophilia; N17.9 Acute kidney failure, unspecified; I50.32 Chronic diastolic (congestive) heart failure; M48.06 Spinal stenosis, lumbar region; I95.89 Other hypotension; K22.0 Achalasia of cardia; D63.1 Anemia in chronic kidney disease; E03.9 Hypothyroidism, unspecified; E11.22 Type 2 diabetes mellitus with diabetic chronic kidney disease; E11.40 Type 2 diabetes mellitus with diabetic neuropathy, unspecified; R13.14 Dysphagia, pharyngoesophageal phase; E11.65 Type 2 diabetes mellitus with hyperglycemia; E78.00 Pure hypercholesterolemia, unspecified; E78.5 Hyperlipidemia, unspecified; E83.41 Hypermagnesemia; E87.5 Hyperkalemia; G89.4 Chronic pain syndrome; K29.50 Unspecified chronic gastritis without bleeding; I05.0 Rheumatic mitral stenosis; I27.2 Other secondary pulmonary hypertension; I48.91 Unspecified atrial fibrillation; K21.9 Gastro-esophageal reflux disease without esophagitis; M10.9 Gout, unspecified; Z79.899 Other long term (current) drug therapy; Z99.2 Dependence on renal dialysis
CPT/HCPCS: 36415; 71010; 74220; 80048; 80053; 81001; 82040; 83605; 83735; 84100; 84484; 85025; 87077; 87086; 87186; 88305; 93005; 96361; 96374; J0696; J0881; J2704; J3010; J7042; J0330; J0360; J7030

== ENCOUNTER 2017-03-18 11:27 | Emergency (ER) | payer MEDICARE ==
[~2017-03-18] VITALS: Ht 157.5 cm; Wt 72.7 kg
[~2017-03-18 11:27] MED LIST changes: +ACET325T14 PO; +LEVO100T PO; +TRAM50TA2 PO
[2017-03-18] MEDS ORDERED: SODIUM CHLORIDE 0.9% 1,000 ML IV ONE (12:53)
[2017-03-18] MEDS ORDERED: SODIUM CHLORIDE FLUSH 10ML SYR IVF ONE (13:00)
[2017-03-18] MEDS ORDERED: ONDANSETRON 2MG/ML, 2ML IVPush ONE (13:00)
[2017-03-18] MEDS ORDERED: HYDROmorphone 1 MG/ML, 1ML IVPush PRN (13:00)
[2017-03-18] MEDS ORDERED: HYDROmorphone 1 MG/ML, 1ML ONE (13:09)
[2017-03-18] MEDS ORDERED: ONDANSETRON 2MG/ML, 2ML ONE (13:09)
[2017-03-18 13:28] LABS: ASPARTATE AMINO TRANSFERASE 25 U/L (15-37); BLOOD UREA NITROGEN 14 mg/dL (7-18)
[2017-03-18] MEDS ORDERED: DIPHENHYDRAMINE 50 MG/ML, 1ML ONE (13:57)
[2017-03-18] MEDS ORDERED: METOCLOPRAMIDE 5 MG/ML, 2ML ONE (13:57)
[2017-03-18] MEDS ORDERED: DIPHENHYDRAMINE 50 MG/ML, 1ML IVPush ONE (14:00)
[2017-03-18] MEDS ORDERED: METOCLOPRAMIDE 5 MG/ML, 2ML IVPush ONE (14:00)
[2017-03-18 15:20] VITALS: BP 147/59
== END 2017-03-18 16:20 | disposition home or self-care (01) ==
LOC: ED 13:20
DX: N30.90 Cystitis, unspecified without hematuria (principal); I13.2 Hypertensive heart and chronic kidney disease with heart failure and with stage 5 chronic kidney disease, or end stage renal disease; E11.22 Type 2 diabetes mellitus with diabetic chronic kidney disease; N18.6 End stage renal disease; I50.9 Heart failure, unspecified; Z99.2 Dependence on renal dialysis; E78.00 Pure hypercholesterolemia, unspecified; G89.29 Other chronic pain; K21.9 Gastro-esophageal reflux disease without esophagitis
CPT/HCPCS: 36415; 71010; 80053; 81001; 83605; 83690; 85025; 87086; 93005; 96374; 96375; 99285; J1170; J1200; J2405; J2765

== ENCOUNTER 2017-04-19 11:17 | Emergency (ER) | payer MEDICARE ==
[~2017-04-19] VITALS: Ht 157.5 cm; Wt 70.5 kg
[~2017-04-19 11:17] MED LIST changes: -ALBU8.5H3 INH; +ALBU8.5H8 INH; +ALPR1TAB2 PO; +AZIT500T5 PO; -AZIT500T77 PO; +CYAN500T18 PO; +LEVO50TA PO; -MAGN400O4 PO; +MAGN400O7 PO; +NITR100C PO; -SEVE800T PO; +SEVE800T7 PO; -UBID100C11 PO; +UBID100C41 PO; -UBID200C4 PO; +UBID200C7 PO
[2017-04-19] MEDS ORDERED: SODIUM CHLORIDE 0.9% 1,000ML IVBOLUS ONE (12:30)
[2017-04-19] MEDS ORDERED: MORPHINE SULFATE 4 MG/ML, 1ML IVPush PRN (12:30)
[2017-04-19] MEDS ORDERED: ONDANSETRON 2MG/ML, 2ML IVPush ONE (12:30)
[2017-04-19] MEDS ORDERED: SODIUM CHLORIDE FLUSH 10ML SYR IVF ONE (12:30)
[2017-04-19 12:44] LABS: HEMATOCRIT 35.1 % (34.6-47.8); HEMOGLOBIN 11.1 g/dL (11.7-16.4)
[2017-04-19] MEDS ORDERED: MORPHINE SULFATE 4 MG/ML, 1ML ONE (12:53)
[2017-04-19] MEDS ORDERED: ONDANSETRON 2MG/ML, 2ML ONE (12:53)
[2017-04-19 12:55] LABS: ASPARTATE AMINO TRANSFERASE 65 U/L (15-37); BLOOD UREA NITROGEN 61 mg/dL (7-18)
[2017-04-19] MEDS ORDERED: OMNIPAQUE 350 MG/ML, 100ML BOTTLE ONE (13:43)
[2017-04-19] MEDS ORDERED: ACETAMINOPHEN 325 MG TABLET ONE (14:25)
[2017-04-19 15:00] VITALS: BP 124/50
[2017-04-19] MEDS ORDERED: ACETAMINOPHEN 325 MG TABLET PO ONE (16:00)
== END 2017-04-19 15:42 | disposition home or self-care (01) ==
LOC: ED 11:41
DX: N39.0 Urinary tract infection, site not specified (principal); R10.31 Right lower quadrant pain; I11.0 Hypertensive heart disease with heart failure; I50.9 Heart failure, unspecified; E11.9 Type 2 diabetes mellitus without complications; E78.00 Pure hypercholesterolemia, unspecified; Z90.49 Acquired absence of other specified parts of digestive tract
CPT/HCPCS: 36415; 74177; 80053; 81001; 83605; 85025; 87040; 87086; 96374; 96375; 99285; J2405; J7030; Q9967; 87147

== ENCOUNTER → 2017-04-30 | Outpatient (CLI) | payer MEDICARE ==
[~2017-04-30] MED LIST changes: +REGADENOSON 0.4 MG/5 ML SYRINGE ONE
== END | disposition home or self-care (01) ==
LOC: CFH 08:48
PROVIDERS: ATTEND Internal Medicine Cardiovascular Disease
DX: I48.0 Paroxysmal atrial fibrillation (principal); I10 Essential (primary) hypertension
CPT/HCPCS: 78452; 93017; A9502; J2785

== ENCOUNTER → 2018-02-14 | Outpatient (CLI) | payer MEDICARE ==
[~2018-02-14] MED LIST changes: -REGADENOSON 0.4 MG/5 ML SYRINGE ONE
== END | disposition home or self-care (01) ==
LOC: CFH 10:06
PROVIDERS: ATTEND Internal Medicine Cardiovascular Disease
DX: I08.3 Combined rheumatic disorders of mitral, aortic and tricuspid valves (principal); I10 Essential (primary) hypertension; I48.0 Paroxysmal atrial fibrillation; E78.5 Hyperlipidemia, unspecified
CPT/HCPCS: 93306

== ENCOUNTER 2018-04-08 13:49 | Emergency (ER) | payer MEDICARE ==
[~2018-04-08] VITALS: Ht 157.5 cm; Wt 79.2 kg
[~2018-04-08 13:49] MED LIST changes: -LABE100T3 PO; +LABE100T6 PO
[2018-04-08] MEDS ORDERED: ERGO2000 PO (14:16)
[2018-04-08] MEDS ORDERED: LEVO100T PO (14:17)
[2018-04-08] MEDS ORDERED: LEVO88TA2 PO (14:18)
[2018-04-08] MEDS ORDERED: DEXAMETHASONE 4 MG TABLET ONE (14:23)
[2018-04-08] MEDS ORDERED: DEXAMETHASONE 4 MG TABLET PO ONE (14:30)
[2018-04-08 14:38] LABS: BASOPHILS # (AUTO) 0.02 x10^3/uL (0-0.1); BASOPHILS % (AUTO) 0 % (0-1); EOSINOPHILS # (AUTO) 0.09 x10^3/uL (0-0.4); EOSINOPHILS % (AUTO) 1 % (1-7); LYMPHOCYTES # (AUTO) 0.77 x10^3/uL (1-3.4); LYMPHOCYTES % (AUTO) 11 % (22-44); MD NO; MEAN CORPUSCULAR HEMOGLOBIN 33.8 pg (27.0-34.8); MEAN CORPUSCULAR HGB CONC 33.9 g/dL (32.4-35.8); MEAN CORPUSCULAR VOLUME 99.6 fL (80-100); MEAN PLATELET VOLUME 8.6 fL (7.4-10.4); MONOCYTES # (AUTO) 0.48 x10^3/uL (0.2-0.8); MONOCYTES % (AUTO) 7 % (2-9); NEUTROPHILS # (AUTO) 5.58 x10^3/uL (1.8-6.8); NEUTROPHILS % (AUTO) 81 % (42-75); PLATELET COUNT 187 x10^3/uL (130-400); RED BLOOD COUNT 3.27 x10^6/uL (3.82-5.3); RED CELL DISTRIBUTION WIDTH 15.2 % (9.6-15.2)
[2018-04-08 14:48] LABS: ALANINE AMINOTRANSFERASE 659 U/L (12-78); ANION GAP 8 mmol/L (5-15); CALCIUM 9.2 mg/dL (8.5-10.1); CHLORIDE 99 mmol/L (98-107); CREATININE 5.16 mg/dL (0.55-1.02)
[2018-04-08 14:50] LABS: ALKALINE PHOSPHATASE 314 U/L (45-117); BILIRUBIN,TOTAL 1.1 mg/dL (0.2-1.0); TOTAL PROTEIN 7.1 g/dL (6.4-8.2)
[2018-04-08 16:46] VITALS: BP 137/45
== END 2018-04-08 16:50 | disposition home or self-care (01) ==
LOC: ED 14:38
DX: L29.9 Pruritus, unspecified (principal); R94.5 Abnormal results of liver function studies; N18.9 Chronic kidney disease, unspecified; K21.9 Gastro-esophageal reflux disease without esophagitis; E11.21 Type 2 diabetes mellitus with diabetic nephropathy; Z90.49 Acquired absence of other specified parts of digestive tract; E78.00 Pure hypercholesterolemia, unspecified; I50.9 Heart failure, unspecified; I13.0 Hypertensive heart and chronic kidney disease with heart failure and stage 1 through stage 4 chronic kidney disease, or unspecified chronic kidney disease
CPT/HCPCS: 36415; 76700; 80053; 83735; 84100; 85025; 99285

== ENCOUNTER → 2018-09-19 | Outpatient (CLI) | payer MEDICARE ==
[~2018-09-19] MED LIST changes: +AMLO-150 PO; +AMLO-472 PO; -AMLO5TAB2 PO; +CARV12.543 PO; +GABA100C PO; +HYDR-3245 PO; +LEVO88TA2 PO; +SEVE800T8 PO; +VALS80TA30 PO
== END | disposition home or self-care (01) ==
LOC: CFH 14:31
PROVIDERS: ATTEND Internal Medicine Cardiovascular Disease
DX: I08.3 Combined rheumatic disorders of mitral, aortic and tricuspid valves (principal); I48.91 Unspecified atrial fibrillation; I10 Essential (primary) hypertension
CPT/HCPCS: 93306

== ENCOUNTER 2018-11-01 06:53 | Inpatient (IN) | payer MEDICARE ==
[~2018-11-01] VITALS: Ht 157.5 cm; Wt 81.1 kg
[~2018-11-01 06:53] MED LIST changes: +CARV6.252 PO
[2018-11-01] MEDS ORDERED: ONDANSETRON ODT 4 MG PO ONE (07:30)
[2018-11-01] MEDS ORDERED: SODIUM CHLORIDE FLUSH 10ML SYR IVF ONE (07:30)
[2018-11-01] MEDS ORDERED: ONDANSETRON ODT 4 MG ONE (07:46)
[2018-11-01] MEDS ORDERED: MORPHINE SULFATE 4 MG/ML, 1ML ONE ×2 (07:46→08:43)
[2018-11-01] MEDS: MORPHINE SULFATE 4 MG/ML, 1ML IVPush PRN ×2 (08:02→08:44)
--- NOTE | 2018-11-01 08:46 | NUR ---
2ND DOSE OF MORPHINE GIVEN FOR PAIN 03/25. VSS, SPOUSE AT BEDSIDE, CALL LIGHT W/I REACH
[2018-11-01] MEDS ORDERED: HYDROcodone/APAP 10/325 MG TABLET ONE (09:26)
[2018-11-01] MEDS ORDERED: HYDROcodone/APAP 10/325 MG TABLET PO ONE (09:30)
--- NOTE | 2018-11-01 09:35 | NUR ---
BLADDER SCAN 350ML
--- NOTE | 2018-11-01 09:36 | NUR ---
PAIN 6/10. PT OOB TO [facility] WITH STAND BY ASSIST.
--- NOTE | 2018-11-01 09:41 | NUR ---
PT VOIDED W/O DIFFICULTY. PT AMBULATED TO SINK AND BACK TO [facility] STANDBY ASSIST. ACTIVITY AGRIVATED PAIN AND PT AGAIN CRYING AND MOANING. DR. ABDUL UPDATED.
[2018-11-01] MEDS ORDERED: PREG50CA PO (10:04)
[2018-11-01] MEDS ORDERED: PREG150C PO (10:05)
[2018-11-01] MEDS ORDERED: ATOR-2 PO (10:06)
--- NOTE | 2018-11-01 10:07 | NUR ---
LATE ENTRY FOR 0950, PT VOIDED 250ML CLEAR YELLOW URINE. DR ABDUL AWARE
[2018-11-01] MEDS ORDERED: HYDROmorphone 2 MG/ML, 1ML IVPush PRN (10:30)
[2018-11-01] MEDS ORDERED: HYDROmorphone 1 MG/ML, 1ML ONE (10:37)
--- NOTE | 2018-11-01 10:42 | NUR ---
TASK RN: [facility] MEDICATED PER OCT FOR PAIN 03/25. BED RAILS UP X 2. VSS. PROVIDED W/ BEAR HUGGER FOR WARMTH.
[2018-11-01 11:00] LABS: BASOPHILS # (AUTO) 0.04 x10^3/uL (0-0.1); BASOPHILS % (AUTO) 0 % (0-1); EOSINOPHILS # (AUTO) 0.14 x10^3/uL (0-0.4); EOSINOPHILS % (AUTO) 1 % (1-7); LYMPHOCYTES # (AUTO) 1.26 x10^3/uL (1-3.4); LYMPHOCYTES % (AUTO) 11 % (22-44); MD NO; MEAN CORPUSCULAR HGB CONC 33.9 g/dL (32.4-35.8); MEAN CORPUSCULAR VOLUME 100.4 fL (80-100); MEAN PLATELET VOLUME 7.9 fL (7.4-10.4); MONOCYTES # (AUTO) 0.82 x10^3/uL (0.2-0.8); MONOCYTES % (AUTO) 7 % (2-9); NEUTROPHILS % (AUTO) 81 % (42-75); PLATELET COUNT 304 x10^3/uL (130-400); RED BLOOD COUNT 3.25 x10^6/uL (3.82-5.3); RED CELL DISTRIBUTION WIDTH 14.9 % (9.6-15.2)
--- NOTE | 2018-11-01 11:00 | NUR ---
PT SP02 FALL TO 85% FOLLOWING DILAUDID DOSE. 02 2L NC PLACED WITH EFFECT. PT RATES PAIN 5/10.
--- NOTE | 2018-11-01 11:02 | NUR ---
PT TO RADIOLOGY WITH TECH TRANSPORT
[2018-11-01 11:05] LABS: ANION GAP 8 mmol/L (5-15); CALCIUM 9.3 mg/dL (8.5-10.1); CHLORIDE 105 mmol/L (98-107)
[2018-11-01] MEDS ORDERED: LABETALOL 5MG/ML, 20ML IVPush PRN (13:00)
[2018-11-01] MEDS ORDERED: ONDANSETRON 2MG/ML, 2ML IVPush PRN (13:00)
[2018-11-01] MEDS ORDERED: METHOCARBAMOL 500 MG TABLET PO PRN (13:00)
[2018-11-01] MEDS ORDERED: POLYETHYLENE GLYCOL 17 GM PACKET PO PRN (13:00)
[2018-11-01] MEDS ORDERED: ERGOCALCIFEROL 1000 UNIT PO SCH (13:00)
[2018-11-01] MEDS ORDERED: HEPARIN 5,000 UNITS/ML, 1ML ONE (13:28)
[2018-11-01] MEDS: HEPARIN 5,000 UNITS/ML, 1ML SQ SCH ×2 (13:31→22:56)
[2018-11-01 14:02] VITALS: BP 147/59
[2018-11-01 14:05] VITALS: BP 147/59
[2018-11-01] MEDS: PREGABALIN 25 MG CAPSULE PO SCH ×3 (14:27→22:55)
[2018-11-01] MEDS ORDERED: SEVELAMER HCL 800MG TABLET PO SCH (16:00)
[2018-11-01] MEDS: SEVELAMER CARBONATE 800MG TAB PO SCH (17:45)
[2018-11-01] MEDS: morphine SULFATE 10 MG/ML, 1ML IVPush PRN ×2 (18:31→22:56)
[2018-11-01 19:55] VITALS: BP 162/77
[2018-11-01] MEDS: CARVEDILOL 6.25 MG TABLET PO SCH (21:00)
[2018-11-01] MEDS: ATORVASTATIN 40 MG TABLET PO SCH (22:55)
[2018-11-01] MEDS: PANTOPROZOLE 40MG TABLET PO SCH (22:55)
[2018-11-02 00:48] VITALS: BP 144/68
[2018-11-02] MEDS: HYDROcodone/APAP 5/325 TABLET PO PRN ×2 (00:58→12:01)
[2018-11-02] MEDS: LEVOTHYROXINE 100 MCG TABLET PO SCH (05:10)
[2018-11-02] MEDS: HEPARIN 5,000 UNITS/ML, 1ML SQ SCH ×3 (05:11→21:28)
[2018-11-02] MEDS ORDERED: LEVOTHYROXINE 88 MCG TABLET PO SCH (06:00)
[2018-11-02 06:26] LABS: BASOPHILS % (AUTO) 0 % (0-1); EOSINOPHILS # (AUTO) 0.44 x10^3/uL (0-0.4); EOSINOPHILS % (AUTO) 3 % (1-7); LYMPHOCYTES # (AUTO) 0.83 x10^3/uL (1-3.4); LYMPHOCYTES % (AUTO) 5 % (22-44); MD NO; MEAN CORPUSCULAR HEMOGLOBIN 34.2 pg (27.0-34.8); MEAN CORPUSCULAR HGB CONC 33.6 g/dL (32.4-35.8); MEAN CORPUSCULAR VOLUME 101.8 fL (80-100); MEAN PLATELET VOLUME 8.3 fL (7.4-10.4); MONOCYTES # (AUTO) 0.27 x10^3/uL (0.2-0.8); MONOCYTES % (AUTO) 2 % (2-9); NEUTROPHILS # (AUTO) 14.16 x10^3/uL (1.8-6.8); NEUTROPHILS % (AUTO) 90 % (42-75); PLATELET COUNT 320 x10^3/uL (130-400); RED BLOOD COUNT 3.34 x10^6/uL (3.82-5.3); RED CELL DISTRIBUTION WIDTH 15.3 % (9.6-15.2)
[2018-11-02 06:37] LABS: ANION GAP 8 mmol/L (5-15); CHLORIDE 97 mmol/L (98-107)
[2018-11-02 06:41] LABS: ALANINE AMINOTRANSFERASE 37 U/L (12-78); ALKALINE PHOSPHATASE 77 U/L (45-117); BILIRUBIN,TOTAL 0.5 mg/dL (0.2-1.0); CREATININE 3.04 mg/dL (0.55-1.02); TOTAL PROTEIN 7.1 g/dL (6.4-8.2)
[2018-11-02 07:36] VITALS: BP 140/73
[2018-11-02] MEDS: SEVELAMER CARBONATE 800MG TAB PO SCH ×3 (08:47→17:45)
[2018-11-02] MEDS: SENNA/DOCUSATE TABLET PO SCH (08:48)
[2018-11-02] MEDS: AMIODARONE 200 MG TABLET PO SCH (08:49)
[2018-11-02] MEDS: CARVEDILOL 6.25 MG TABLET PO SCH ×2 (08:49→21:26)
[2018-11-02] MEDS: PANTOPROZOLE 40MG TABLET PO SCH ×2 (08:50→21:27)
[2018-11-02] MEDS: PREGABALIN 25 MG CAPSULE PO SCH ×3 (08:50→21:27)
[2018-11-02] MEDS ORDERED: LIDODERM 5% PATCH TD ONE (09:00)
[2018-11-02] MEDS ORDERED: DEXAMETHASONE 4 MG/ML, 5ML IVPush ONE (09:30)
[2018-11-02] MEDS: CHOLECALCIFEROL 1,000 UNIT TABLET PO SCH (11:13)
[2018-11-02] MEDS: METHOCARBAMOL 500 MG TABLET PO PRN ×2 (12:01→21:28)
[2018-11-02 13:13] VITALS: BP 138/76
[2018-11-02] MEDS ORDERED: LEVOTHYROXINE MC SCH (15:00)
[2018-11-02] MEDS: morphine SULFATE 10 MG/ML, 1ML IVPush PRN ×2 (17:52→21:28)
[2018-11-02 18:51] VITALS: BP 123/71
[2018-11-02] MEDS: ATORVASTATIN 40 MG TABLET PO SCH (21:27)
[2018-11-02] MEDS: DEXAMETHASONE 4 MG/ML, 1ML IVPush SCH (21:39)
[2018-11-03 00:30] VITALS: BP 116/70
[2018-11-03] MEDS: DEXAMETHASONE 4 MG/ML, 1ML IVPush SCH ×2 (02:52→08:58)
[2018-11-03] MEDS: HEPARIN 5,000 UNITS/ML, 1ML SQ SCH ×3 (05:10→20:32)
[2018-11-03] MEDS: LEVOTHYROXINE 100 MCG TABLET PO SCH (05:11)
[2018-11-03 06:28] LABS: BASOPHILS % (AUTO) 0 % (0-1); EOSINOPHILS # (AUTO) 0.23 x10^3/uL (0-0.4); EOSINOPHILS % (AUTO) 2 % (1-7); LYMPHOCYTES # (AUTO) 0.69 x10^3/uL (1-3.4); LYMPHOCYTES % (AUTO) 6 % (22-44); MD NO; MEAN CORPUSCULAR HEMOGLOBIN 34.4 pg (27.0-34.8); MEAN CORPUSCULAR HGB CONC 34.1 g/dL (32.4-35.8); MEAN CORPUSCULAR VOLUME 101.1 fL (80-100); MEAN PLATELET VOLUME 8.3 fL (7.4-10.4); MONOCYTES # (AUTO) 0.27 x10^3/uL (0.2-0.8); MONOCYTES % (AUTO) 2 % (2-9); NEUTROPHILS # (AUTO) 11.27 x10^3/uL (1.8-6.8); NEUTROPHILS % (AUTO) 91 % (42-75); PLATELET COUNT 299 x10^3/uL (130-400); RED CELL DISTRIBUTION WIDTH 15.2 % (9.6-15.2)
[2018-11-03 06:29] LABS: ANION GAP 11 mmol/L (5-15); CALCIUM 8.8 mg/dL (8.5-10.1); CHLORIDE 100 mmol/L (98-107); CREATININE 4.91 mg/dL (0.55-1.02)
[2018-11-03 07:28] VITALS: BP 119/74
[2018-11-03] MEDS: CARVEDILOL 6.25 MG TABLET PO SCH ×2 (08:57→20:32)
[2018-11-03] MEDS: PANTOPROZOLE 40MG TABLET PO SCH ×2 (08:57→20:31)
[2018-11-03] MEDS: PREGABALIN 25 MG CAPSULE PO SCH ×3 (08:57→20:31)
[2018-11-03] MEDS: AMIODARONE 200 MG TABLET PO SCH (08:58)
[2018-11-03] MEDS: SENNA/DOCUSATE TABLET PO SCH (08:58)
[2018-11-03] MEDS: SEVELAMER CARBONATE 800MG TAB PO SCH ×3 (08:58→16:15)
[2018-11-03] MEDS: FUROSEMIDE 40 MG TABLET PO SCH (12:36)
[2018-11-03 12:54] VITALS: BP 123/79
[2018-11-03] MEDS: DEXAMETHASONE 4 MG TABLET PO SCH (16:15)
[2018-11-03] MEDS: PHENAZOPYRIDINE 100 MG TABLET PO PRN (17:01)
[2018-11-03 18:34] LABS: CULTURE INDICATED? YES; MICROSCOPIC INDICATED
[2018-11-03 19:16] VITALS: BP 140/71
[2018-11-03] MEDS: ATORVASTATIN 40 MG TABLET PO SCH (20:31)
[2018-11-04 01:12] VITALS: BP 133/64
[2018-11-04 06:08] LABS: BASOPHILS % (AUTO) 0 % (0-1); EOSINOPHILS % (AUTO) 0 % (1-7); LYMPHOCYTES # (AUTO) 1.04 x10^3/uL (1-3.4); LYMPHOCYTES % (AUTO) 8 % (22-44); MD NO; MEAN CORPUSCULAR HEMOGLOBIN 33.5 pg (27.0-34.8); MEAN CORPUSCULAR VOLUME 101.6 fL (80-100); MEAN PLATELET VOLUME 8.4 fL (7.4-10.4); MONOCYTES # (AUTO) 1.05 x10^3/uL (0.2-0.8); MONOCYTES % (AUTO) 8 % (2-9); NEUTROPHILS # (AUTO) 11.54 x10^3/uL (1.8-6.8); NEUTROPHILS % (AUTO) 85 % (42-75); PLATELET COUNT 243 x10^3/uL (130-400); RED BLOOD COUNT 3.13 x10^6/uL (3.82-5.3); RED CELL DISTRIBUTION WIDTH 15.8 % (9.6-15.2)
[2018-11-04] MEDS: PHENAZOPYRIDINE 100 MG TABLET PO PRN ×2 (06:08→13:42)
[2018-11-04] MEDS: HEPARIN 5,000 UNITS/ML, 1ML SQ SCH ×3 (06:09→22:10)
[2018-11-04] MEDS: LEVOTHYROXINE 100 MCG TABLET PO SCH (06:09)
[2018-11-04 06:45] VITALS: BP 130/68
[2018-11-04] MEDS: AMIODARONE 200 MG TABLET PO SCH (08:11)
[2018-11-04] MEDS: PREGABALIN 25 MG CAPSULE PO SCH ×3 (08:11→22:11)
[2018-11-04] MEDS: CARVEDILOL 6.25 MG TABLET PO SCH ×2 (08:11→21:00)
[2018-11-04] MEDS: ONDANSETRON ODT 4 MG PO PRN (08:12)
[2018-11-04] MEDS: PANTOPROZOLE 40MG TABLET PO SCH ×2 (08:12→22:11)
[2018-11-04] MEDS: FUROSEMIDE 40 MG TABLET PO SCH (08:13)
[2018-11-04] MEDS: CHOLECALCIFEROL 1,000 UNIT TABLET PO SCH (08:13)
[2018-11-04] MEDS: DEXAMETHASONE 4 MG TABLET PO SCH ×2 (08:13→22:11)
[2018-11-04] MEDS: SEVELAMER CARBONATE 800MG TAB PO SCH ×3 (08:13→17:50)
[2018-11-04] MEDS: LIDODERM 5% PATCH TD SCH (08:14)
[2018-11-04] MEDS: DOCUSATE 100 MG CAPSULE PO SCH (08:14)
[2018-11-04] MEDS: SENNA/DOCUSATE TABLET PO SCH (08:14)
[2018-11-04] MEDS ORDERED: MAALOX/HYOSCYAMINE/LIDOCAINE 45 ML BTL PO PRN (10:30)
[2018-11-04] MEDS: INSULIN LISPRO 100 UNITS/ML, PEN SQ-INSULIN SCH ×3 (11:46→22:11)
[2018-11-04 12:20] VITALS: BP 133/64
[2018-11-04] MEDS: CEFTRIAXONE PMX 1GM/50ML 50 ML IV SCH (12:36)
[2018-11-04 18:32] VITALS: BP 101/54
[2018-11-04] MEDS: LIDODERM REMOVE PATCH NOTE XX SCH (21:00)
[2018-11-04] MEDS: ATORVASTATIN 40 MG TABLET PO SCH (22:11)
[2018-11-05 02:42] VITALS: BP 119/69
[2018-11-05] MEDS: LEVOTHYROXINE 100 MCG TABLET PO SCH (05:44)
[2018-11-05] MEDS: HEPARIN 5,000 UNITS/ML, 1ML SQ SCH ×3 (05:44→23:55)
[2018-11-05] MEDS: INSULIN LISPRO 100 UNITS/ML, PEN SQ-INSULIN SCH ×3 (07:00→17:07)
[2018-11-05 07:30] VITALS: BP 129/74
[2018-11-05 07:38] VITALS: BP 132/76
[2018-11-05] MEDS: SEVELAMER CARBONATE 800MG TAB PO SCH ×3 (08:31→17:07)
[2018-11-05] MEDS: LIDODERM 5% PATCH TD SCH (08:32)
[2018-11-05] MEDS: DEXAMETHASONE 4 MG TABLET PO SCH ×2 (08:32→23:54)
[2018-11-05] MEDS: SENNA/DOCUSATE TABLET PO SCH (08:36)
[2018-11-05] MEDS: DOCUSATE 100 MG CAPSULE PO SCH (08:36)
[2018-11-05] MEDS: PREGABALIN 25 MG CAPSULE PO SCH ×3 (09:00→23:54)
[2018-11-05] MEDS: FUROSEMIDE 40 MG TABLET PO SCH (09:00)
[2018-11-05] MEDS: AMIODARONE 200 MG TABLET PO SCH (09:00)
[2018-11-05] MEDS: CARVEDILOL 6.25 MG TABLET PO SCH ×2 (09:00→23:54)
[2018-11-05] MEDS: PANTOPROZOLE 40MG TABLET PO SCH ×2 (09:00→23:53)
[2018-11-05 13:12] VITALS: BP 136/78
--- NOTE | 2018-11-05 14:23 | NUR ---
REC: Regular diet with thin liquids as tolerated; GERD precautions Addendum: 11/05/18 at 1423 by Elis JOHNSTON Amended: Links added.
[2018-11-05 18:38] VITALS: BP 152/64
[2018-11-05] MEDS: ATORVASTATIN 40 MG TABLET PO SCH (23:54)
[2018-11-05] MEDS: LIDODERM REMOVE PATCH NOTE XX SCH (23:55)
[2018-11-06] MEDS: CEFTRIAXONE PMX 1GM/50ML 50 ML IV SCH ×2 (00:51→15:34)
[2018-11-06] MEDS: INSULIN LISPRO 100 UNITS/ML, PEN SQ-INSULIN SCH ×4 (01:11→11:28)
[2018-11-06 03:45] VITALS: BP 148/72
[2018-11-06] MEDS: LEVOTHYROXINE 100 MCG TABLET PO SCH (07:21)
[2018-11-06 07:58] VITALS: BP 158/63
[2018-11-06] MEDS: PREGABALIN 25 MG CAPSULE PO SCH (08:29)
[2018-11-06] MEDS: DEXAMETHASONE 4 MG TABLET PO SCH (08:29)
[2018-11-06] MEDS: FUROSEMIDE 40 MG TABLET PO SCH (08:29)
[2018-11-06] MEDS: LIDODERM 5% PATCH TD SCH (08:30)
[2018-11-06] MEDS: AMIODARONE 200 MG TABLET PO SCH (08:30)
[2018-11-06] MEDS: HEPARIN 5,000 UNITS/ML, 1ML SQ SCH (08:30)
[2018-11-06] MEDS: SEVELAMER CARBONATE 800MG TAB PO SCH ×2 (08:30→11:28)
[2018-11-06] MEDS: CARVEDILOL 6.25 MG TABLET PO SCH (08:30)
[2018-11-06] MEDS: PANTOPROZOLE 40MG TABLET PO SCH (08:30)
[2018-11-06] MEDS: CHOLECALCIFEROL 1,000 UNIT TABLET PO SCH (08:40)
[2018-11-06] MEDS: ONDANSETRON ODT 4 MG PO PRN (08:40)
[2018-11-06] MEDS: DOCUSATE 100 MG CAPSULE PO SCH (09:00)
[2018-11-06] MEDS: SENNA/DOCUSATE TABLET PO SCH (09:00)
[2018-11-06] MEDS ORDERED: CEFU250T66 PO (12:07)
[2018-11-06] MEDS ORDERED: MORP30TA3 PO (12:07)
[2018-11-06] MEDS ORDERED: ONDA4TAB13 SL (12:07)
[2018-11-06] MEDS ORDERED: DOCU-131 PO (12:07)
[2018-11-06] MEDS ORDERED: HYDR-3241 PO (12:07)
[2018-11-06] MEDS ORDERED: LIDO700A20 TD (12:13)
[2018-11-06 12:18] VITALS: BP 147/56
[2018-11-06] MEDS ORDERED: DEXA1TAB5 PO (12:19)
[2018-11-07] MEDS ORDERED: PREGABALIN 75 MG CAPSULE PO SCH (09:00)
== END 2018-11-06 16:30 | disposition home health service (06) | DRG 551 ==
LOC: ED 07:19 → EDIP 11:04 → INTOOBSV 11:04 → 4EST 13:56 → OBSVTOIN 11-03 10:55
PROVIDERS: ADMIT Hospitalist; ATTEND Hospitalist
PROC: 5A1D70Z Performance of Urinary Filtration, Intermittent, Less than 6 Hours Per Day (ICD-10-PCS; 2018-11-01)
PROC: 5A1D70Z Performance of Urinary Filtration, Intermittent, Less than 6 Hours Per Day (ICD-10-PCS; principal; 2018-11-03)
PROC: 5A1D70Z Performance of Urinary Filtration, Intermittent, Less than 6 Hours Per Day (ICD-10-PCS; 2018-11-05)
DX: M54.32 Sciatica, left side (principal); N18.6 End stage renal disease; N39.0 Urinary tract infection, site not specified; N25.81 Secondary hyperparathyroidism of renal origin; I13.2 Hypertensive heart and chronic kidney disease with heart failure and with stage 5 chronic kidney disease, or end stage renal disease; I50.32 Chronic diastolic (congestive) heart failure; E44.0 Moderate protein-calorie malnutrition; D68.69 Other thrombophilia; M48.07 Spinal stenosis, lumbosacral region; M51.17 Intervertebral disc disorders with radiculopathy, lumbosacral region; B96.20 Unspecified Escherichia coli [E. coli] as the cause of diseases classified elsewhere; I48.0 Paroxysmal atrial fibrillation; K21.9 Gastro-esophageal reflux disease without esophagitis; I05.2 Rheumatic mitral stenosis with insufficiency; E11.65 Type 2 diabetes mellitus with hyperglycemia; E87.5 Hyperkalemia; E78.5 Hyperlipidemia, unspecified; G89.29 Other chronic pain; M10.9 Gout, unspecified; K59.00 Constipation, unspecified; T38.0X5A Adverse effect of glucocorticoids and synthetic analogues, initial encounter; R13.10 Dysphagia, unspecified; E03.9 Hypothyroidism, unspecified; E11.22 Type 2 diabetes mellitus with diabetic chronic kidney disease; D63.1 Anemia in chronic kidney disease; E11.21 Type 2 diabetes mellitus with diabetic nephropathy; I27.20 Pulmonary hypertension, unspecified; E78.00 Pure hypercholesterolemia, unspecified; I15.8 Other secondary hypertension; Z96.653 Presence of artificial knee joint, bilateral; Z99.2 Dependence on renal dialysis; Z79.899 Other long term (current) drug therapy; Z87.440 Personal history of urinary (tract) infections; Z90.49 Acquired absence of other specified parts of digestive tract; Z88.8 Allergy status to other drugs, medicaments and biological substances; Z68.32 Body mass index [BMI] 32.0-32.9, adult
CPT/HCPCS: 36415; 70450; 72148; 80048; 80053; 81001; 82040; 82962; 83735; 84100; 85025; 86705; 86706; 87077; 87086; 87186; 87340; 93005; 96374; 96375; 96376; 99285; G0378; J0696; J1100; J1170; J1644; Q0162; J1815; J2270; J7512

== ENCOUNTER 2018-11-20 03:57 | Emergency (ER) | payer MEDICARE ==
[~2018-11-20] VITALS: Ht 157.5 cm; Wt 78.0 kg
[~2018-11-20 03:57] MED LIST changes: +ATOR-2 PO; +CEFU250T66 PO; +DEXA1TAB5 PO; +DOCU-131 PO; +HYDR-3241 PO; +LIDO700A20 TD; +MORP30TA3 PO; +ONDA4TAB13 SL; +PREG150C PO; +PREG50CA PO
--- NOTE | 2018-11-20 04:09 | NUR ---
PT HERE VIA [facility] NOTING THAT SHE TOOK HERE HYDROCODONE AND MUSCLE RELAXANT ON AN EMPTY STOMACH AT APPROX 0300 THEN BECAME NAUSEATED AND TOOK A ZOFRAN AND THIS HAS NOT AFFORDED ANY RELIEF. IV STARTED EN ROUTE, PT DENIES PAIN AT THIS TIME OTHER THAN HER CHRONIC PAIN. PT PLACED ON MONITOR, CONTIOUS SPO2, GOOD SHRILL ON DIALYSIS SHUNT ON R SIDE.
[2018-11-20] MEDS ORDERED: PROMETHAZINE 25 MG/ML, 1ML ONE (04:24)
[2018-11-20] MEDS ORDERED: HYDROmorphone 1 MG/ML, 1ML VIAL ONE (04:25)
[2018-11-20] MEDS ORDERED: HYDROmorphone 1 MG/ML, 1ML INJ IM ONE (04:30)
[2018-11-20] MEDS ORDERED: PROMETHAZINE 25 MG/ML, 1ML IM ONE (04:30)
--- NOTE | 2018-11-20 04:36 | NUR ---
PT MEDICATED PER EMAR. PT TOLERATED WELL. PT'S AOX4. RESPS EVEN AND UNLABORED.
--- NOTE | 2018-11-20 04:59 | NUR ---
PT STATES "I DON'T FEEL RIGHT. I STILL HAVE NAUSEA NOW." EDMD NOTIFIED.
--- NOTE | 2018-11-20 05:29 | NUR ---
PT STRAIGHT CATH'D USING STERILE TECHNIQUE. UA COLLECTED. THIS RN WALKED TO LAB.
[2018-11-20 05:36] LABS: MICROSCOPIC AUTO
[2018-11-20 05:39] LABS: CULTURE INDICATED? YES
[2018-11-20 05:50] LABS: ALANINE AMINOTRANSFERASE 47 U/L (12-78); ANION GAP 6 mmol/L (5-15); CALCIUM 8.6 mg/dL (8.5-10.1); CHLORIDE 103 mmol/L (98-107); CREATININE 3.37 mg/dL (0.55-1.02)
[2018-11-20 05:52] LABS: BASOPHILS # (AUTO) 0.02 x10^3/uL (0-0.1); BASOPHILS % (AUTO) 0 % (0-1); EOSINOPHILS # (AUTO) 0.07 x10^3/uL (0-0.4); EOSINOPHILS % (AUTO) 1 % (1-7); LYMPHOCYTES # (AUTO) 0.94 x10^3/uL (1-3.4); LYMPHOCYTES % (AUTO) 13 % (22-44); MD NO; MEAN CORPUSCULAR HEMOGLOBIN 34.4 pg (27.0-34.8); MEAN CORPUSCULAR HGB CONC 33.1 g/dL (32.4-35.8); MEAN CORPUSCULAR VOLUME 104.1 fL (80-100); MEAN PLATELET VOLUME 8.4 fL (7.4-10.4); MONOCYTES # (AUTO) 0.61 x10^3/uL (0.2-0.8); MONOCYTES % (AUTO) 8 % (2-9); NEUTROPHILS # (AUTO) 5.79 x10^3/uL (1.8-6.8); NEUTROPHILS % (AUTO) 78 % (42-75); PLATELET COUNT 120 x10^3/uL (130-400); RED BLOOD COUNT 3.39 x10^6/uL (3.82-5.3)
[2018-11-20 05:54] LABS: ALKALINE PHOSPHATASE 66 U/L (45-117); BILIRUBIN,TOTAL 0.6 mg/dL (0.2-1.0); TOTAL PROTEIN 6.4 g/dL (6.4-8.2); TROPONIN I < 0.015 ng/mL (0.000-0.045)
[2018-11-20] MEDS ORDERED: CEFTRIAXONE PMX 1GM/50ML 50 ML IV ONE (06:30)
[2018-11-20] MEDS ORDERED: CEFDINIR 300 MG CAPSULE PO ONE (06:30)
[2018-11-20 06:36] VITALS: BP 167/54
[2018-11-20] MEDS ORDERED: CEFTRIAXONE PMX 1GM/50ML 50 ML ONE (06:40)
--- NOTE | 2018-11-20 06:49 | NUR ---
PT MEDICATED PER EMAR. PT TOLERATED WELL. PT'S AOX4. RESPS EVEN AND UNLABORED.
--- NOTE | 2018-11-20 06:51 | NUR ---
REPORT GIVEN TO MAIKEL MIKE.
--- NOTE | 2018-11-20 06:55 | NUR ---
Family updated & aware of POC to d/c home after abx. Pt is resting, eyes closed, awakens to V. VSS.
--- NOTE | 2018-11-20 07:15 | NUR ---
Patient given discharge instructions and they have confirmed that they understand the instructions. Patient being dressed & taken in out in wheelchair by family.
== END 2018-11-20 07:17 | disposition home or self-care (01) ==
LOC: ED 05:24
DX: R11.2 Nausea with vomiting, unspecified (principal); M54.9 Dorsalgia, unspecified; M79.662 Pain in left lower leg; N39.0 Urinary tract infection, site not specified; I13.2 Hypertensive heart and chronic kidney disease with heart failure and with stage 5 chronic kidney disease, or end stage renal disease; N18.6 End stage renal disease; E11.22 Type 2 diabetes mellitus with diabetic chronic kidney disease; E03.9 Hypothyroidism, unspecified; K21.9 Gastro-esophageal reflux disease without esophagitis; E78.00 Pure hypercholesterolemia, unspecified; I50.9 Heart failure, unspecified; Z90.49 Acquired absence of other specified parts of digestive tract
CPT/HCPCS: 36415; 80053; 81001; 83735; 84484; 85025; 87077; 87086; 87186; 93005; 96365; 96372; 99284; J0696; J1170; J2550

== ENCOUNTER 2018-11-21 19:20 | Inpatient (IN) | payer MEDICARE ==
[~2018-11-21] VITALS: Ht 157.5 cm; Wt 83.7 kg
[2018-11-21 19:42] LABS: BASOPHILS # (AUTO) 0.01 x10^3/uL (0-0.1); BASOPHILS % (AUTO) 0 % (0-1); EOSINOPHILS # (AUTO) 0.19 x10^3/uL (0-0.4); EOSINOPHILS % (AUTO) 2 % (1-7); LYMPHOCYTES # (AUTO) 1.31 x10^3/uL (1-3.4); LYMPHOCYTES % (AUTO) 17 % (22-44); MD NO; MEAN CORPUSCULAR HEMOGLOBIN 34.7 pg (27.0-34.8); MEAN CORPUSCULAR HGB CONC 33.3 g/dL (32.4-35.8); MEAN CORPUSCULAR VOLUME 104.2 fL (80-100); MEAN PLATELET VOLUME 8.1 fL (7.4-10.4); MONOCYTES # (AUTO) 0.61 x10^3/uL (0.2-0.8); MONOCYTES % (AUTO) 8 % (2-9); NEUTROPHILS # (AUTO) 5.61 x10^3/uL (1.8-6.8); NEUTROPHILS % (AUTO) 73 % (42-75); PLATELET COUNT 139 x10^3/uL (130-400); RED BLOOD COUNT 3.46 x10^6/uL (3.82-5.3); RED CELL DISTRIBUTION WIDTH 18.6 % (9.6-15.2)
[2018-11-21 19:53] LABS: ALANINE AMINOTRANSFERASE 40 U/L (12-78); ALBUMIN 2.8 g/dL (3.4-5.0); ANION GAP 9 mmol/L (5-15); CALCIUM 8.4 mg/dL (8.5-10.1); CHLORIDE 108 mmol/L (98-107); CREATININE 5.38 mg/dL (0.55-1.02)
[2018-11-21 19:55] LABS: ALKALINE PHOSPHATASE 79 U/L (45-117); BILIRUBIN,TOTAL 0.4 mg/dL (0.2-1.0); TOTAL PROTEIN 6.4 g/dL (6.4-8.2)
--- NOTE | 2018-11-21 23:00 | NUR ---
PT PLACED IN ROOM AND POSITIONED FOR COMFORT. PT WITH CHRONIC PAIN AND REPORTS PAIN IS NOT CONTROLED BY NORMAL DAILY MEDS.
[2018-11-22] MEDS ORDERED: PROMETHAZINE 25 MG/ML, 1ML ONE (00:06)
[2018-11-22] MEDS ORDERED: OXYcodone/APAP 10/325MG TABLET ONE (00:06)
--- NOTE | 2018-11-22 00:15 | NUR ---
PT MEDICATED ORDERED AND AWAITING ABD CT SCAN
[2018-11-22] MEDS ORDERED: OXYcodone/APAP 10/325MG TABLET PO ONE (00:30)
[2018-11-22] MEDS ORDERED: PROMETHAZINE 25 MG/ML, 1ML IM PRN (00:30)
--- NOTE | 2018-11-22 00:46 | NUR ---
PT TO CT SCAN
--- NOTE | 2018-11-22 01:38 | NUR ---
PT REMAINS IN PAIN AND NOT ABLE TO GET COMFORTABLE.
[2018-11-22] MEDS ORDERED: ZIPRASIDONE 20 MG INJ IM ONE ×2 (01:56→02:00)
--- NOTE | 2018-11-22 02:24 | NUR ---
pt still in pain after geodon given. erp aware.
--- NOTE | 2018-11-22 02:51 | NUR ---
AMBROSE RN: REPORT OF PT FROM CEE LI AND ASSUMING CARE OF PT AT THIS TIME.
--- NOTE | 2018-11-22 03:26 | NUR ---
report called to floor. pt ready to go
[2018-11-22 03:55] VITALS: BP 149/76
[2018-11-22] MEDS ORDERED: morphine SULFATE 10 MG/ML, 1ML IVPush PRN (05:30)
[2018-11-22] MEDS ORDERED: ONDANSETRON 2MG/ML, 2ML IVPush PRN (05:30)
[2018-11-22] MEDS ORDERED: OXYcodone/APAP 5/325MG TABLET PO PRN (05:30)
[2018-11-22] MEDS ORDERED: LABETALOL 5 MG/ML SYRINGE IVPush PRN (05:30)
[2018-11-22 13:38] VITALS: BP_SYST 106; BP_SYST 166; BP_DIAS 63; BP_DIAS 73
[2018-11-22] MEDS ORDERED: ONDANSETRON ODT 4 MG SL PRN (17:00)
[2018-11-22] MEDS ORDERED: SEVELAMER HCL 800MG TABLET PO SCH ×2 (17:00→21:00)
[2018-11-22] MEDS: LIDODERM 5% PATCH TD SCH (17:38)
[2018-11-22 20:06] VITALS: BP 177/73
[2018-11-22] MEDS: PREGABALIN 150 MG CAPSULE PO SCH (20:45)
[2018-11-22] MEDS: DOCUSATE 100 MG CAPSULE PO SCH (20:45)
[2018-11-22] MEDS: ATORVASTATIN 40 MG TABLET PO SCH (20:46)
[2018-11-22] MEDS: CARVEDILOL 6.25 MG TABLET PO SCH (20:46)
[2018-11-22] MEDS: PANTOPROZOLE 40MG TABLET PO SCH (20:47)
[2018-11-22 22:05] VITALS: BP 128/71
[2018-11-23 02:41] VITALS: BP 118/70
[2018-11-23 04:52] LABS: BASOPHILS # (AUTO) 0.01 x10^3/uL (0-0.1); BASOPHILS % (AUTO) 0 % (0-1); EOSINOPHILS # (AUTO) 0.13 x10^3/uL (0-0.4); EOSINOPHILS % (AUTO) 2 % (1-7); LYMPHOCYTES # (AUTO) 1.27 x10^3/uL (1-3.4); LYMPHOCYTES % (AUTO) 21 % (22-44); MD NO; MEAN CORPUSCULAR HEMOGLOBIN 34.6 pg (27.0-34.8); MEAN CORPUSCULAR HGB CONC 32.9 g/dL (32.4-35.8); MEAN CORPUSCULAR VOLUME 105.1 fL (80-100); MEAN PLATELET VOLUME 7.9 fL (7.4-10.4); MONOCYTES # (AUTO) 0.66 x10^3/uL (0.2-0.8); MONOCYTES % (AUTO) 11 % (2-9); NEUTROPHILS # (AUTO) 3.97 x10^3/uL (1.8-6.8); NEUTROPHILS % (AUTO) 66 % (42-75); PLATELET COUNT 116 x10^3/uL (130-400); RED BLOOD COUNT 3.21 x10^6/uL (3.82-5.3); RED CELL DISTRIBUTION WIDTH 18.5 % (9.6-15.2)
[2018-11-23 05:25] VITALS: BP 115/62
[2018-11-23] MEDS: LEVOTHYROXINE 100 MCG TABLET PO SCH (05:44)
[2018-11-23 06:31] LABS: ANION GAP 7 mmol/L (5-15); CALCIUM 8.6 mg/dL (8.5-10.1); CHLORIDE 112 mmol/L (98-107); CREATININE 6.74 mg/dL (0.55-1.02)
[2018-11-23] MEDS: PANTOPROZOLE 40MG TABLET PO SCH ×2 (08:15→16:21)
[2018-11-23] MEDS: FUROSEMIDE 40 MG TABLET PO SCH (08:15)
[2018-11-23] MEDS: CHOLECALCIFEROL 1,000 UNIT TABLET PO SCH (08:15)
[2018-11-23] MEDS: DOCUSATE 100 MG CAPSULE PO SCH ×2 (08:15→21:00)
[2018-11-23] MEDS: SEVELAMER CARBONATE 800MG TAB PO SCH ×4 (08:15→19:47)
[2018-11-23] MEDS: PREGABALIN 150 MG CAPSULE PO SCH ×2 (08:15→21:00)
[2018-11-23] MEDS: AMIODARONE 200 MG TABLET PO SCH (08:15)
[2018-11-23] MEDS: CARVEDILOL 6.25 MG TABLET PO SCH ×2 (08:15→22:21)
[2018-11-23 08:29] VITALS: BP 153/74
[2018-11-23] MEDS ORDERED: ACETAMINOPHEN 325 MG TABLET ONE ×2 (12:22→22:11)
[2018-11-23] MEDS: ACETAMINOPHEN 325 MG TABLET PO PRN ×3 (12:28→22:20)
[2018-11-23 14:02] VITALS: BP 137/57
[2018-11-23 21:46] VITALS: BP 132/78
[2018-11-23] MEDS: ATORVASTATIN 40 MG TABLET PO SCH (22:21)
[2018-11-23] MEDS: LIDODERM 5% PATCH TD SCH (22:22)
[2018-11-24 01:20] VITALS: BP 103/66
[2018-11-24] MEDS: PANTOPROZOLE 40MG TABLET PO SCH ×2 (04:18→18:04)
[2018-11-24] MEDS: ACETAMINOPHEN 325 MG TABLET PO PRN ×2 (05:28→22:30)
[2018-11-24 06:09] LABS: BASOPHILS # (AUTO) 0.01 x10^3/uL (0-0.1); BASOPHILS % (AUTO) 0 % (0-1); EOSINOPHILS # (AUTO) 0.05 x10^3/uL (0-0.4); EOSINOPHILS % (AUTO) 1 % (1-7); LYMPHOCYTES # (AUTO) 1.21 x10^3/uL (1-3.4); LYMPHOCYTES % (AUTO) 21 % (22-44); MD NO; MEAN CORPUSCULAR HEMOGLOBIN 33.9 pg (27.0-34.8); MEAN CORPUSCULAR HGB CONC 32.8 g/dL (32.4-35.8); MEAN CORPUSCULAR VOLUME 103.2 fL (80-100); MEAN PLATELET VOLUME 7.7 fL (7.4-10.4); MONOCYTES # (AUTO) 0.64 x10^3/uL (0.2-0.8); MONOCYTES % (AUTO) 11 % (2-9); NEUTROPHILS # (AUTO) 3.95 x10^3/uL (1.8-6.8); NEUTROPHILS % (AUTO) 67 % (42-75); PLATELET COUNT 127 x10^3/uL (130-400); RED BLOOD COUNT 3.24 x10^6/uL (3.82-5.3); RED CELL DISTRIBUTION WIDTH 18.4 % (9.6-15.2)
[2018-11-24 06:20] LABS: CALCIUM 8.2 mg/dL (8.5-10.1); CREATININE 3.82 mg/dL (0.55-1.02)
[2018-11-24 06:21] LABS: ANION GAP 6 mmol/L (5-15); CHLORIDE 105 mmol/L (98-107)
[2018-11-24] MEDS: LEVOTHYROXINE 100 MCG TABLET PO SCH (06:45)
[2018-11-24] MEDS: SEVELAMER CARBONATE 800MG TAB PO SCH ×2 (08:01→11:34)
[2018-11-24] MEDS: FUROSEMIDE 40 MG TABLET PO SCH (08:15)
[2018-11-24] MEDS: CARVEDILOL 6.25 MG TABLET PO SCH ×2 (08:15→18:05)
[2018-11-24] MEDS: AMIODARONE 200 MG TABLET PO SCH (08:15)
[2018-11-24] MEDS: CHOLECALCIFEROL 1,000 UNIT TABLET PO SCH (08:15)
[2018-11-24] MEDS: DOCUSATE 100 MG CAPSULE PO SCH ×2 (08:15→21:00)
[2018-11-24] MEDS: PREGABALIN 150 MG CAPSULE PO SCH ×2 (08:15→21:00)
[2018-11-24 08:16] VITALS: BP 152/74
[2018-11-24 14:45] VITALS: BP 117/80
[2018-11-24] MEDS ORDERED: ONDANSETRON ODT 4 MG PO PRN (16:30)
[2018-11-24 17:30] VITALS: BP 145/64
[2018-11-24] MEDS ORDERED: AMIODARONE 200 MG TABLET PO ONE (18:00)
[2018-11-24 18:21] LABS: ANION GAP 7 mmol/L (5-15); CALCIUM 8.1 mg/dL (8.5-10.1); CHLORIDE 99 mmol/L (98-107)
[2018-11-24 18:26] LABS: CREATINE KINASE, TOTAL 118 U/L (26-192); CREATININE 1.91 mg/dL (0.55-1.02); FREE T4 (FREE THYROXINE) 1.69 ng/dL (0.76-1.46); TROPONIN I 0.017 ng/mL (0.000-0.045)
[2018-11-24 18:28] LABS: BASOPHILS # (AUTO) 0.01 x10^3/uL (0-0.1); BASOPHILS % (AUTO) 0 % (0-1); EOSINOPHILS # (AUTO) 0.06 x10^3/uL (0-0.4); EOSINOPHILS % (AUTO) 1 % (1-7); LYMPHOCYTES # (AUTO) 1.48 x10^3/uL (1-3.4); LYMPHOCYTES % (AUTO) 23 % (22-44); MEAN CORPUSCULAR HEMOGLOBIN 34.5 pg (27.0-34.8); MEAN CORPUSCULAR HGB CONC 33.5 g/dL (32.4-35.8); MEAN PLATELET VOLUME 7.7 fL (7.4-10.4); MONOCYTES % (AUTO) 9 % (2-9); NEUTROPHILS # (AUTO) 4.23 x10^3/uL (1.8-6.8); NEUTROPHILS % (AUTO) 66 % (42-75); PLATELET COUNT 144 x10^3/uL (130-400); RED BLOOD COUNT 3.36 x10^6/uL (3.82-5.3); RED CELL DISTRIBUTION WIDTH 17.6 % (9.6-15.2)
[2018-11-24 18:29] LABS: MD NO
[2018-11-24 19:54] VITALS: BP 112/65
[2018-11-24] MEDS: ATORVASTATIN 40 MG TABLET PO SCH (22:29)
[2018-11-24] MEDS: LIDODERM 5% PATCH TD SCH (22:31)
[2018-11-25 01:11] VITALS: BP 120/65
[2018-11-25] MEDS: LEVOTHYROXINE 100 MCG TABLET PO SCH (06:13)
[2018-11-25 06:23] LABS: BASOPHILS # (AUTO) 0.01 x10^3/uL (0-0.1); BASOPHILS % (AUTO) 0 % (0-1); EOSINOPHILS # (AUTO) 0.12 x10^3/uL (0-0.4); EOSINOPHILS % (AUTO) 2 % (1-7); LYMPHOCYTES % (AUTO) 21 % (22-44); MD NO; MEAN CORPUSCULAR HEMOGLOBIN 34.7 pg (27.0-34.8); MEAN CORPUSCULAR HGB CONC 33.8 g/dL (32.4-35.8); MEAN CORPUSCULAR VOLUME 102.7 fL (80-100); MEAN PLATELET VOLUME 7.7 fL (7.4-10.4); MONOCYTES # (AUTO) 0.53 x10^3/uL (0.2-0.8); MONOCYTES % (AUTO) 9 % (2-9); NEUTROPHILS # (AUTO) 3.76 x10^3/uL (1.8-6.8); NEUTROPHILS % (AUTO) 67 % (42-75); PLATELET COUNT 139 x10^3/uL (130-400); RED BLOOD COUNT 3.01 x10^6/uL (3.82-5.3); RED CELL DISTRIBUTION WIDTH 17.7 % (9.6-15.2)
[2018-11-25 06:30] LABS: ANION GAP 5 mmol/L (5-15); CALCIUM 8.2 mg/dL (8.5-10.1); CHLORIDE 100 mmol/L (98-107)
[2018-11-25 06:31] LABS: CREATININE 2.94 mg/dL (0.55-1.02)
[2018-11-25] MEDS: ACETAMINOPHEN 325 MG TABLET PO PRN ×2 (07:37→13:17)
[2018-11-25] MEDS: PANTOPROZOLE 40MG TABLET PO SCH (07:37)
[2018-11-25] MEDS: SEVELAMER CARBONATE 800MG TAB PO SCH ×2 (08:45→12:58)
[2018-11-25] MEDS: CARVEDILOL 6.25 MG TABLET PO SCH (08:46)
[2018-11-25] MEDS: FUROSEMIDE 40 MG TABLET PO SCH (08:47)
[2018-11-25] MEDS: AMIODARONE 200 MG TABLET PO SCH (08:47)
[2018-11-25] MEDS: PREGABALIN 150 MG CAPSULE PO SCH (08:48)
[2018-11-25] MEDS: DOCUSATE 100 MG CAPSULE PO SCH (08:49)
[2018-11-25] MEDS ORDERED: AMLO2.5T5 PO (08:53)
[2018-11-25 09:16] VITALS: BP 126/69
[2018-11-25] MEDS ORDERED: ACET325T14 PO (11:39)
[2018-11-25] MEDS ORDERED: LIDO700A20 TD (11:39)
[2018-11-25 13:15] VITALS: BP 108/69
== END 2018-11-25 15:41 | disposition home health service (06) | DRG 555 ==
LOC: ED 22:59 → EDIP 11-22 02:53 → 4NOR 11-22 03:40 → 5SO 11-24 17:24
PROVIDERS: ADMIT Family Medicine; ATTEND Family Medicine
PROC: 5A1D70Z Performance of Urinary Filtration, Intermittent, Less than 6 Hours Per Day (ICD-10-PCS; principal; 2018-11-23)
PROC: 5A1D70Z Performance of Urinary Filtration, Intermittent, Less than 6 Hours Per Day (ICD-10-PCS; 2018-11-24)
DX: M79.605 Pain in left leg (principal); N18.6 End stage renal disease; E87.0 Hyperosmolality and hypernatremia; I13.2 Hypertensive heart and chronic kidney disease with heart failure and with stage 5 chronic kidney disease, or end stage renal disease; I50.32 Chronic diastolic (congestive) heart failure; N39.0 Urinary tract infection, site not specified; I48.0 Paroxysmal atrial fibrillation; G89.29 Other chronic pain; E03.9 Hypothyroidism, unspecified; E11.22 Type 2 diabetes mellitus with diabetic chronic kidney disease; Z99.2 Dependence on renal dialysis; M48.061 Spinal stenosis, lumbar region without neurogenic claudication; R41.0 Disorientation, unspecified; T43.595A Adverse effect of other antipsychotics and neuroleptics, initial encounter; Y92.89 Other specified places as the place of occurrence of the external cause
CPT/HCPCS: 36415; 72110; 74176; 80048; 80053; 82550; 83690; 83874; 84439; 84443; 84484; 85025; 93005; 96372; 99285; G0378; J2550; J3486; Q0162

== ENCOUNTER 2019-07-19 10:21 | Outpatient (CLI) | payer MEDICARE ==
[~2019-07-19 10:21] MED LIST changes: -ALPR-475 PO; +ALPR0.5T7 PO; -AMLO-472 PO; +AMLO-512 PO; +AMLO2.5T5 PO; +APIX2.5T PO; +AZIT500T PO; +AZIT500T10 PO; -AZIT500T5 PO; -MAGN400T7 PO; +MAGN400T9 PO; +MORP-29 PO; +MORP-30 PO; -MORP15TA3 PO; -MORP30TA3 PO
[2019-07-19] MEDS ORDERED: OMNIPAQUE 350 MG/ML, 75ML BOTTLE ONE (15:15)
== END 2019-07-19 23:59 | disposition home or self-care (01) ==
LOC: CFH 10:21
PROVIDERS: ATTEND Nurse Practitioner Family
DX: J84.9 Interstitial pulmonary disease, unspecified (principal); I25.10 Atherosclerotic heart disease of native coronary artery without angina pectoris; I70.0 Atherosclerosis of aorta
CPT/HCPCS: 71260; 82565; Q9967

== ENCOUNTER 2019-07-19 21:54 | Emergency (ER) | payer MEDICARE ==
[~2019-07-19] VITALS: Ht 157.5 cm; Wt 82.0 kg
[2019-07-19 22:00] VITALS: BP 126/61
--- NOTE | 2019-07-19 23:21 | NUR ---
PT WHEELED BACK FROM LOBBY TO ROOM AT THIS TIME. ASSUMED CARE OF PT.
[2019-07-19] MEDS ORDERED: LIDOCAINE 1%-EPI 1:100K, 20ML ONE (23:23)
[2019-07-19] MEDS ORDERED: LIDOCAINE 2%-EPI 1:100K, 20ML INFIL ONE (23:30)
--- NOTE | 2019-07-19 23:30 | NUR ---
RICHARD MORSE AT BEDSIDE FOR EVAL. THIS IS A 74 YO FEMALE WHO PRESENTS TO THE ER C/O SMALL AREA OF BLEEDING TO RIGHT FRONT INCISOR. PT AO X 4. SKIN PWD. RESP EVEN AND UNLABORED. PT CURRENTLY RESTING ON [employer] CALL LIGHT WITHIN REACH. WILL CONT TO MONITOR PT.
[2019-07-19 23:41] LABS: MEAN CORPUSCULAR HEMOGLOBIN 33.3 pg (27.0-34.8); MEAN CORPUSCULAR HGB CONC 32.8 g/dL (32.4-35.8); MEAN CORPUSCULAR VOLUME 101.3 fL (80-100); MEAN PLATELET VOLUME 7.9 fL (7.4-10.4); PLATELET COUNT 195 x10^3/uL (130-400); RED BLOOD COUNT 3.69 x10^6/uL (3.82-5.3); RED CELL DISTRIBUTION WIDTH 16.1 % (9.6-15.2)
[2019-07-19 23:52] LABS: ANION GAP 10 mmol/L (5-15); CALCIUM 8.7 mg/dL (8.5-10.1); CHLORIDE 99 mmol/L (98-107); CREATININE 6.03 mg/dL (0.55-1.02)
[2019-07-19 23:56] LABS: TROPONIN I < 0.015 ng/mL (0.000-0.045)
--- NOTE | 2019-07-20 00:17 | NUR ---
REPORT TO CEE LEDESMA WHO ASSUMED CARE OF PT.
[2019-07-20 00:24] LABS: BASOPHILS # (AUTO) 0.01 x10^3/uL (0-0.1); BASOPHILS % (AUTO) 0 % (0-1); EOSINOPHILS # (AUTO) 0.03 x10^3/uL (0-0.4); EOSINOPHILS % (AUTO) 1 % (1-7); LYMPHOCYTES # (AUTO) 0.19 x10^3/uL (1-3.4); LYMPHOCYTES % (AUTO) 3 % (22-44); MD SCAN; MONOCYTES # (AUTO) 0.13 x10^3/uL (0.2-0.8); MONOCYTES % (AUTO) 2 % (2-9); NEUTROPHILS # (AUTO) 6.35 x10^3/uL (1.8-6.8); NEUTROPHILS % (AUTO) 95 % (42-75)
== END 2019-07-20 01:18 | disposition home or self-care (01) ==
LOC: ED 23:37
DX: K02.9 Dental caries, unspecified (principal); K06.8 Other specified disorders of gingiva and edentulous alveolar ridge; R68.83 Chills (without fever); I50.9 Heart failure, unspecified; I13.2 Hypertensive heart and chronic kidney disease with heart failure and with stage 5 chronic kidney disease, or end stage renal disease; N18.6 End stage renal disease; E78.00 Pure hypercholesterolemia, unspecified; K21.9 Gastro-esophageal reflux disease without esophagitis; I48.91 Unspecified atrial fibrillation; G89.29 Other chronic pain; E03.9 Hypothyroidism, unspecified; E11.22 Type 2 diabetes mellitus with diabetic chronic kidney disease; Z99.2 Dependence on renal dialysis
CPT/HCPCS: 36415; 80048; 82040; 84484; 85025; 93005; 99284

== ENCOUNTER 2019-08-21 09:46 | Emergency (ER) | payer MEDICARE ==
[~2019-08-21] VITALS: Ht 157.5 cm; Wt 83.7 kg
--- NOTE | 2019-08-21 10:24 | NUR ---
"ALMOST 3 MONTHS AGO, CAME IN FOR A-FIB, TOLD ME I HAD PNEUMONIA, IN HOSPITAL 5 DAYS GETTING ANTIBIOTICS, WENT UP, LASTED A FEW WEEKS, THEN I WAS OKAY ABOUT A WEEK AND HALF AND NOW ABOUT 2 WEEKS I STARTED COUGHING AGAIN, COUGHING UP BROWN AND YELLOW, SAW MY DOCTOR TEJINDER THURMAN'S REBECCA AND SHE SAID I STILL HAD PNEUMONIA AND SHE WAS GOING TO PRESVRIBE ME A STRONGER ANITBIOTIC BUT IT NEVER MADE IT TO PHARMACY FROM HER OFFICE. WENT TO URGENT CARE WEDNESDAY AND THEY GAVE ME CEFDINIR 300MG 2 CAPSULES BID, AND TESSALON PERLES. I'M WORRIED BECAUSE MY DIALYSIS, NO CHEST PAINS JUST FEELING LIKE I'M WHEEZING AND IT'S HARD TO BREATH LAYING FLAT." CONT PULSE OX, BP, CARDIAC MONITORS IN PLACE. SIDE RAILS UPX2. FALL PRECAUTIONS IN PLACE. FAMILY AT BEDSIDE. AWAITING EVALUATION BY ERP.
--- NOTE | 2019-08-21 10:40 | NUR ---
DR. REGALADO AT BEDSIDE FOR EVALUATION, AWAITING ORDERS
--- NOTE | 2019-08-21 10:52 | NUR ---
RT PAGED, AWARE OF TREATMENT. PT MEDICATED NOTED PER MD ORDER. RAD AT BEDSIDE.
[2019-08-21] MEDS ORDERED: ALBUTEROL/IPRATROPIUM 2.5MG/0.5MG, 3 ML ONE (10:55)
[2019-08-21] MEDS ORDERED: LEVO100T5 PO (10:58)
[2019-08-21] MEDS ORDERED: LEVO88TA4 PO (10:58)
--- NOTE | 2019-08-21 10:59 | NUR ---
TO COMPLETED EKG WHEN EQUIPMENT AVAILABLE, DISCUSSED WITH DR. REGALADO, AWARE. PT REMAINS ON TRAIN CONTROLLER. SR ON MONITOR. VSS.
--- NOTE | 2019-08-21 10:59 | NUR ---
LAB AT BEDSIDE
[2019-08-21] MEDS ORDERED: ALBUTEROL/IPRATROPIUM 2.5MG/0.5MG, 3 ML NPPB ONE (11:00)
--- NOTE | 2019-08-21 11:15 | NUR ---
EKG DELAY DUE TO LAB AT BEDSIDE, EKG COMPLETED AT THIS TIME
[2019-08-21 11:28] LABS: BASOPHILS # (AUTO) 0.02 x10^3/uL (0-0.1); BASOPHILS % (AUTO) 0 % (0-1); EOSINOPHILS % (AUTO) 2 % (1-7); LYMPHOCYTES # (AUTO) 0.88 x10^3/uL (1-3.4); LYMPHOCYTES % (AUTO) 9 % (22-44); MD NO; MEAN CORPUSCULAR HEMOGLOBIN 33.3 pg (27.0-34.8); MEAN CORPUSCULAR HGB CONC 32.8 g/dL (32.4-35.8); MEAN CORPUSCULAR VOLUME 101.5 fL (80-100); MEAN PLATELET VOLUME 7.8 fL (7.4-10.4); MONOCYTES # (AUTO) 0.62 x10^3/uL (0.2-0.8); MONOCYTES % (AUTO) 6 % (2-9); NEUTROPHILS # (AUTO) 8.51 x10^3/uL (1.8-6.8); NEUTROPHILS % (AUTO) 83 % (42-75); PLATELET COUNT 224 x10^3/uL (130-400); RED BLOOD COUNT 3.16 x10^6/uL (3.82-5.3); RED CELL DISTRIBUTION WIDTH 16.6 % (9.6-15.2)
--- NOTE | 2019-08-21 11:28 | NUR ---
PT REPORTS "FEELING BETTER AFTER THE MEDICINE AND BREATHING TREATMENT, STILL FEEL LIKE I'M WHEEZING A LITTLE BUT NOT BAD." DENIES ANY PAIN OR CP. VSS. SLIGHT IMPROVEMENT TO WHEEZING WITH AUSCULTATION, IMPROVED AIR MOVEMENT. CALL LIGHT IN REACH. DENIES NEED TO USE RESTROOM. REPOSITION FOR COMFORT. AWAITING RESULTS.
[2019-08-21 11:38] LABS: ALANINE AMINOTRANSFERASE 50 U/L (12-78); ALBUMIN 2.8 g/dL (3.4-5.0); ANION GAP 7 mmol/L (5-15); CALCIUM 7.9 mg/dL (8.5-10.1); CHLORIDE 99 mmol/L (98-107)
[2019-08-21 11:43] LABS: ALKALINE PHOSPHATASE 75 U/L (45-117); BILIRUBIN,TOTAL 0.6 mg/dL (0.2-1.0); CREATININE 5.33 mg/dL (0.55-1.02); TROPONIN I < 0.015 ng/mL (0.000-0.045)
--- NOTE | 2019-08-21 11:57 | NUR ---
PT UP FOR RECHECK
--- NOTE | 2019-08-21 12:35 | NUR ---
PT CONTINUES AWAITING RECHECK. DISCUSSED LABS WITH DR. REGALADO, AWARE, NO ADDITIONAL ORDERS RECEIVED AT THIS TIME. RESTING IN POSITION OF COMFORT. DOZING INTERMITTENTLY. RESP REGULAR AND UNLABORED. VSS. CALL LIGHT IN REACH. FAMILY AT BEDSIDE. FALL PRECUATIONS IN PLACE.
--- NOTE | 2019-08-21 13:15 | NUR ---
PT UP FOR RECHECK
--- NOTE | 2019-08-21 13:28 | NUR ---
DR. REGALADO AT BEDSIDE DISCUSSING TEST RESULTS AND POC, PT TO BE DISCHARGED. AWAITING CHART AND DISCHARGE PAPERS.
[2019-08-21 14:02] VITALS: BP 156/58
== END 2019-08-21 14:05 | disposition home or self-care (01) ==
LOC: ED 11:52
DX: J98.01 Acute bronchospasm (principal); E11.22 Type 2 diabetes mellitus with diabetic chronic kidney disease; I13.2 Hypertensive heart and chronic kidney disease with heart failure and with stage 5 chronic kidney disease, or end stage renal disease; I50.9 Heart failure, unspecified; N18.6 End stage renal disease; I48.91 Unspecified atrial fibrillation; K21.9 Gastro-esophageal reflux disease without esophagitis; E03.9 Hypothyroidism, unspecified; E78.00 Pure hypercholesterolemia, unspecified; Z90.49 Acquired absence of other specified parts of digestive tract
CPT/HCPCS: 36415; 71045; 80053; 83605; 83880; 84484; 85025; 87040; 93005; 94640; 99284; J7512; J7620

== ENCOUNTER → 2020-02-23 | Outpatient (CLI) | payer MEDICARE ==
[~2020-02-23] MED LIST changes: +CLON0.3T PO; -CLON0.3T47 PO; +LEVO100T5 PO; +LEVO88TA4 PO
== END | disposition home or self-care (01) ==
LOC: CFH 08:13
PROVIDERS: ATTEND Internal Medicine Cardiovascular Disease
DX: I08.1 Rheumatic disorders of both mitral and tricuspid valves (principal)
CPT/HCPCS: 93306

== ENCOUNTER 2020-07-08 10:59 | Emergency (ER) | payer MEDICARE ==
[~2020-07-08] VITALS: Ht 157.5 cm; Wt 77.3 kg
[~2020-07-08 10:59] MED LIST changes: -PANT20TA3 PO; +PANT20TA4 PO; -PANT40TA5 PO; +PANT40TA6 PO
--- NOTE | 2020-07-08 11:08 | NUR ---
BIB [facility], PT WITH C/O RUQ ABD PAIN [id number] THIS AM. DENIES N/V/D. PT TO BP, CONT PULSE OX, AWAITING ERMD EVAL
[2020-07-08] MEDS ORDERED: ONDANSETRON 2MG/ML, 2ML ONE (11:15)
[2020-07-08] MEDS ORDERED: MORPHINE SULFATE 4 MG/ML, 1ML ONE (11:16)
[2020-07-08] MEDS ORDERED: SODIUM CHLORIDE FLUSH 10ML SYR IVF ONE (11:30)
[2020-07-08] MEDS ORDERED: ONDANSETRON 2MG/ML, 2ML IVPush ONE (11:30)
[2020-07-08] MEDS ORDERED: MORPHINE SULFATE 4 MG/ML, 1ML IVPush PRN (11:30)
--- NOTE | 2020-07-08 11:36 | NUR ---
straight catherized- sample walked to lab
[2020-07-08 11:40] LABS: BASOPHILS % (AUTO) 1 % (0-1); EOSINOPHILS % (AUTO) 1 % (1-7); LYMPHOCYTES % (AUTO) 13 % (22-44); MEAN CORPUSCULAR HEMOGLOBIN 33.4 pg (27.0-34.8); MEAN CORPUSCULAR HGB CONC 33.5 g/dL (32.4-35.8); MEAN PLATELET VOLUME 7.7 fL (7.4-10.4); MONOCYTES % (AUTO) 7 % (2-9); NEUTROPHILS % (AUTO) 79 % (42-75); PLATELET COUNT 120 x10^3/uL (130-400); RED BLOOD COUNT 3.36 x10^6/uL (3.82-5.3); RED CELL DISTRIBUTION WIDTH 15.3 % (9.6-15.2)
[2020-07-08 11:47] LABS: ALANINE AMINOTRANSFERASE 77 U/L (12-78); ALBUMIN 3.3 g/dL (3.4-5.0); ANION GAP 11 mmol/L (5-15); CALCIUM 9.6 mg/dL (8.5-10.1); CHLORIDE 100 mmol/L (98-107); CREATININE 5.27 mg/dL (0.55-1.02)
[2020-07-08 11:53] LABS: ALKALINE PHOSPHATASE 85 U/L (45-117); BILIRUBIN,TOTAL 0.6 mg/dL (0.2-1.0); TOTAL PROTEIN 7.2 g/dL (6.4-8.2)
[2020-07-08 11:55] LABS: MD NO
[2020-07-08 11:56] LABS: MICROSCOPIC AUTO
--- NOTE | 2020-07-08 12:31 | NUR ---
PT BACK FROM IMAGING, VSS, NAD NOTED, PT PLACED FOR RECHECK
[2020-07-08 13:39] VITALS: BP 154/57
== END 2020-07-08 13:55 | disposition home or self-care (01) ==
LOC: ED 13:45
DX: R10.31 Right lower quadrant pain (principal); R11.0 Nausea; E11.22 Type 2 diabetes mellitus with diabetic chronic kidney disease; I13.11 Hypertensive heart and chronic kidney disease without heart failure, with stage 5 chronic kidney disease, or end stage renal disease; N18.6 End stage renal disease; E87.6 Hypokalemia; E83.42 Hypomagnesemia; E16.2 Hypoglycemia, unspecified; E78.00 Pure hypercholesterolemia, unspecified; I95.9 Hypotension, unspecified; E03.9 Hypothyroidism, unspecified; G89.29 Other chronic pain; I48.91 Unspecified atrial fibrillation; K21.9 Gastro-esophageal reflux disease without esophagitis; Z99.2 Dependence on renal dialysis
CPT/HCPCS: 36415; 74176; 80053; 81001; 85025; 96374; 96375; 99284; J2270; J2405

== ENCOUNTER 2020-08-10 12:28 | Observation (INO) | payer MEDICARE ==
[~2020-08-10] VITALS: Ht 152.4 cm; Wt 78.2 kg
--- NOTE | 2020-08-10 12:59 | NUR ---
XR and lab at bedside.
[2020-08-10 13:19] LABS: BASOPHILS % (AUTO) 1 % (0-1); EOSINOPHILS % (AUTO) 1 % (1-7); LYMPHOCYTES % (AUTO) 8 % (22-44); MEAN CORPUSCULAR HEMOGLOBIN 33.5 pg (27.0-34.8); MEAN CORPUSCULAR HGB CONC 32.9 g/dL (32.4-35.8); MEAN PLATELET VOLUME 7.5 fL (7.4-10.4); MONOCYTES % (AUTO) 7 % (2-9); NEUTROPHILS % (AUTO) 84 % (42-75); PLATELET COUNT 224 x10^3/uL (130-400); RED BLOOD COUNT 3.11 x10^6/uL (3.82-5.3); RED CELL DISTRIBUTION WIDTH 17.2 % (9.6-15.2)
[2020-08-10 13:22] LABS: MD NO
[2020-08-10 13:32] LABS: ALANINE AMINOTRANSFERASE 19 U/L (12-78); ALBUMIN 3.2 g/dL (3.4-5.0); ANION GAP 4 mmol/L (5-15); CALCIUM 9.2 mg/dL (8.5-10.1); CHLORIDE 102 mmol/L (98-107); CREATININE 5.12 mg/dL (0.55-1.02)
[2020-08-10 13:36] LABS: ALKALINE PHOSPHATASE 78 U/L (45-117); BILIRUBIN,TOTAL 0.7 mg/dL (0.2-1.0); TOTAL PROTEIN 7.2 g/dL (6.4-8.2); TROPONIN I < 0.015 ng/mL (0.000-0.045)
[2020-08-10] MEDS ORDERED: FUROSEMIDE 40 MG/4 ML IVPush ONE (14:30)
--- NOTE | 2020-08-10 14:34 | NUR ---
Pt reporting difficulty getting a deep breath, chest pain. RN at bedside. Repeating EKG.
[2020-08-10] MEDS ORDERED: FUROSEMIDE 40 MG/4 ML ONE (14:42)
--- NOTE | 2020-08-10 15:11 | NUR ---
Pt up to bedside commode.
[2020-08-10] MEDS ORDERED: hydrALAzine 20 MG/ML, 1ML IVPush PRN (15:30)
[2020-08-10] MEDS ORDERED: ACETAMINOPHEN 325 MG TABLET PO PRN (15:30)
--- NOTE | 2020-08-10 15:30 | NUR ---
Report called to Janki MIKE.
--- NOTE | 2020-08-10 16:03 | NUR ---
UA sent to lab
[2020-08-10 16:26] VITALS: BP 142/72
[2020-08-10] MEDS: CARVEDILOL 6.25 MG TABLET PO SCH (16:48)
[2020-08-10] MEDS: SEVELAMER CARBONATE 800MG TAB PO SCH (16:48)
[2020-08-10 17:30] LABS: MICROSCOPIC AUTO
[2020-08-10 18:40] VITALS: BP 149/71
[2020-08-10] MEDS ORDERED: ONDANSETRON 2MG/ML, 2ML ONE (21:59)
[2020-08-10] MEDS ORDERED: ONDANSETRON 2MG/ML, 2ML IVPush PRN (22:00)
[2020-08-10] MEDS: ATORVASTATIN 40 MG TABLET PO SCH (23:54)
[2020-08-10] MEDS: AMLODIPINE 2.5 MG TABLET PO SCH (23:54)
[2020-08-10] MEDS: APIXABAN 2.5 MG TABLET PO SCH (23:56)
[2020-08-11 00:58] VITALS: BP 143/74
[2020-08-11] MEDS: CARVEDILOL 6.25 MG TABLET PO SCH ×2 (06:20→17:26)
[2020-08-11] MEDS: SEVELAMER CARBONATE 800MG TAB PO SCH ×3 (06:20→15:46)
[2020-08-11] MEDS: LEVOTHYROXINE 88 MCG TABLET PO SCH (06:20)
[2020-08-11 06:42] LABS: BASOPHILS % (AUTO) 1 % (0-1); EOSINOPHILS % (AUTO) 1 % (1-7); LYMPHOCYTES % (AUTO) 9 % (22-44); MEAN CORPUSCULAR HEMOGLOBIN 34.7 pg (27.0-34.8); MEAN CORPUSCULAR HGB CONC 34.1 g/dL (32.4-35.8); MEAN PLATELET VOLUME 7.7 fL (7.4-10.4); MONOCYTES % (AUTO) 8 % (2-9); NEUTROPHILS % (AUTO) 81 % (42-75); PLATELET COUNT 191 x10^3/uL (130-400); RED BLOOD COUNT 2.59 x10^6/uL (3.82-5.3); RED CELL DISTRIBUTION WIDTH 16.8 % (9.6-15.2)
[2020-08-11 06:49] LABS: ANION GAP 5 mmol/L (5-15); CHLORIDE 100 mmol/L (98-107); CREATININE 2.78 mg/dL (0.55-1.02)
[2020-08-11 07:04] LABS: MD SCAN
[2020-08-11 08:47] VITALS: BP 148/69
[2020-08-11] MEDS: FUROSEMIDE 40 MG TABLET PO SCH (08:51)
[2020-08-11] MEDS: AMLODIPINE 2.5 MG TABLET PO SCH ×2 (08:51→20:40)
[2020-08-11] MEDS: APIXABAN 2.5 MG TABLET PO SCH (08:51)
[2020-08-11] MEDS ORDERED: AMIODARONE 200 MG TABLET PO SCH (09:00)
[2020-08-11] MEDS: CEFTRIAXONE PMX 2GM/50ML 50 ML IVPB SCH (12:08)
[2020-08-11 13:39] VITALS: BP 130/58
[2020-08-11] MEDS: AMIODARONE 200 MG TABLET PO SCH ×2 (17:25→19:00)
[2020-08-11 19:03] VITALS: BP 125/74
[2020-08-11 20:38] VITALS: BP 136/71
[2020-08-11] MEDS: ATORVASTATIN 40 MG TABLET PO SCH (20:40)
[2020-08-11] MEDS: APIXABAN 5 MG TABLET PO SCH (20:41)
[2020-08-12 01:09] VITALS: BP 159/74
[2020-08-12] MEDS: CARVEDILOL 6.25 MG TABLET PO SCH (05:35)
[2020-08-12] MEDS: SEVELAMER CARBONATE 800MG TAB PO SCH ×2 (05:35→11:41)
[2020-08-12] MEDS: LEVOTHYROXINE 88 MCG TABLET PO SCH (05:35)
[2020-08-12 05:38] VITALS: BP 181/81
[2020-08-12 07:04] VITALS: BP 147/72
[2020-08-12] MEDS: APIXABAN 5 MG TABLET PO SCH (07:33)
[2020-08-12] MEDS: FUROSEMIDE 40 MG TABLET PO SCH (07:33)
[2020-08-12] MEDS: AMIODARONE 200 MG TABLET PO SCH ×2 (07:33→07:36)
[2020-08-12] MEDS: AMLODIPINE 2.5 MG TABLET PO SCH (07:33)
[2020-08-12 07:54] LABS: BASOPHILS % (AUTO) 1 % (0-1); EOSINOPHILS % (AUTO) 2 % (1-7); LYMPHOCYTES % (AUTO) 10 % (22-44); MEAN CORPUSCULAR HEMOGLOBIN 34.6 pg (27.0-34.8); MEAN CORPUSCULAR HGB CONC 33.8 g/dL (32.4-35.8); MEAN PLATELET VOLUME 7.8 fL (7.4-10.4); MONOCYTES % (AUTO) 10 % (2-9); NEUTROPHILS % (AUTO) 77 % (42-75); PLATELET COUNT 207 x10^3/uL (130-400); RED CELL DISTRIBUTION WIDTH 16.5 % (9.6-15.2)
[2020-08-12 08:05] LABS: MD NO
[2020-08-12 08:10] LABS: ANION GAP 8 mmol/L (5-15); CALCIUM 8.7 mg/dL (8.5-10.1); CHLORIDE 101 mmol/L (98-107)
[2020-08-12 08:17] LABS: CREATININE 4.43 mg/dL (0.55-1.02)
[2020-08-12] MEDS ORDERED: FUROSEMIDE 40 MG TABLET PO SCH (11:30)
[2020-08-12] MEDS: CEFTRIAXONE PMX 2GM/50ML 50 ML IVPB SCH (11:42)
[2020-08-12 12:42] VITALS: BP 156/78
[2020-08-12] MEDS ORDERED: LACT1TAB13 PO (15:29)
[2020-08-12] MEDS ORDERED: CEFD300C37 PO (15:29)
[2020-08-12] MEDS ORDERED: FURO40TA6 PO (15:29)
== END 2020-08-12 16:21 | disposition home or self-care (01) ==
LOC: ED 14:17 → EDIP 14:52 → INTOOBSV 14:52 → 3N 16:09
PROVIDERS: ADMIT Internal Medicine Infectious Disease; ATTEND Internal Medicine
DX: J81.1 Chronic pulmonary edema (principal); Z20.828 Contact with and (suspected) exposure to other viral communicable diseases; I13.2 Hypertensive heart and chronic kidney disease with heart failure and with stage 5 chronic kidney disease, or end stage renal disease; E11.22 Type 2 diabetes mellitus with diabetic chronic kidney disease; I50.32 Chronic diastolic (congestive) heart failure; N18.6 End stage renal disease; R30.0 Dysuria; D72.829 Elevated white blood cell count, unspecified; I48.0 Paroxysmal atrial fibrillation; M48.061 Spinal stenosis, lumbar region without neurogenic claudication; D63.1 Anemia in chronic kidney disease; M10.9 Gout, unspecified; J96.01 Acute respiratory failure with hypoxia; E78.5 Hyperlipidemia, unspecified; K21.9 Gastro-esophageal reflux disease without esophagitis; E78.00 Pure hypercholesterolemia, unspecified; N39.0 Urinary tract infection, site not specified; D68.69 Other thrombophilia; D53.9 Nutritional anemia, unspecified; E03.9 Hypothyroidism, unspecified; N25.0 Renal osteodystrophy; Z99.2 Dependence on renal dialysis; Z87.440 Personal history of urinary (tract) infections; Z79.01 Long term (current) use of anticoagulants; Z79.82 Long term (current) use of aspirin; Z79.899 Other long term (current) drug therapy; Z90.49 Acquired absence of other specified parts of digestive tract; Z91.11 Patient's noncompliance with dietary regimen; Z96.653 Presence of artificial knee joint, bilateral
CPT/HCPCS: 36415; 71045; 76700; 80048; 80053; 81001; 83690; 83735; 83880; 84145; 84484; 85025; 86706; 87077; 87086; 87186; 87340; 93005; 96365; 96366; 96375; 99285; G0378; J0696; J1940; J2405; U0003; G0257

== ENCOUNTER 2020-08-30 14:30 | Emergency (ER) | payer MEDICARE ==
[~2020-08-30] VITALS: Ht 157.5 cm; Wt 77.2 kg
[~2020-08-30 14:30] MED LIST changes: +LACT1TAB13 PO
--- NOTE | 2020-08-30 14:56 | NUR ---
PATIENT WHEELED BACK FROM TRIAGE WITH CHIEF C/O BLADDER PAIN AND PRESSURE. PATIENT STATES PAIN AND PRESSURE HAS BEEN GOING ON FOR THE LAST WEEK, BUT THIS MORNING GOT WORSE. RECENTLY SEEN FOR SAME ISSUE, GIVEN ABX, PATIENT HAS BEEN TAKING ABX THE LAST 2.5 DAYS. PATIENT IS A DIALYSIS PATIENT AND NORMALLY PRODUCES URINE ON AVERAGE 2 TIMES PER DAY, WITH A MINIMAL AMOUNT COMING OUT. NADN, PATIENT HTN AT 129/107, ERMD AT BEDSIDE FOR BLADDER ULTRASOUND.
[2020-08-30 15:24] LABS: ALBUMIN 3.5 g/dL (3.4-5.0); ANION GAP 7 mmol/L (5-15); CALCIUM 9.3 mg/dL (8.5-10.1); CHLORIDE 97 mmol/L (98-107); CREATININE 4.71 mg/dL (0.55-1.02)
--- NOTE | 2020-08-30 15:24 | NUR ---
PATIENT STRAIGHT CATH'D FOR URINE SAMPLE, PATIENT TOLERATED WELL. URINE SAMPLE COLLECTED AND WALKED TO LAB.
[2020-08-30] MEDS ORDERED: PHENAZOPYRIDINE 200 MG TABLET ONE (15:26)
[2020-08-30] MEDS ORDERED: PHENAZOPYRIDINE 200 MG TABLET PO ONE (15:30)
[2020-08-30 15:33] LABS: MICROSCOPIC INDICATED
[2020-08-30] MEDS ORDERED: CEFTRIAXONE 1,000 MG ONE (15:54)
--- NOTE | 2020-08-30 15:56 | NUR ---
ERMD AT BEDSIDE TO DISCUSS POC.
[2020-08-30] MEDS ORDERED: CEFTRIAXONE 1,000 MG IM ONE (16:00)
[2020-08-30 16:02] VITALS: BP 139/43
--- NOTE | 2020-08-30 16:29 | NUR ---
Patient given discharge instructions and prescriptions and they have confirmed that they understand the instructions, patient signed controlled substance contract. Patient stable, wheeled out of ED to private vehicle by significant other.
== END 2020-08-30 16:30 | disposition home or self-care (01) ==
LOC: ED 16:00
DX: N30.00 Acute cystitis without hematuria (principal); E11.22 Type 2 diabetes mellitus with diabetic chronic kidney disease; I12.0 Hypertensive chronic kidney disease with stage 5 chronic kidney disease or end stage renal disease; N18.6 End stage renal disease; Z99.2 Dependence on renal dialysis; K21.9 Gastro-esophageal reflux disease without esophagitis; E78.00 Pure hypercholesterolemia, unspecified; I45.10 Unspecified right bundle-branch block; Z90.49 Acquired absence of other specified parts of digestive tract
CPT/HCPCS: 36415; 71045; 80048; 81001; 82040; 87077; 87086; 93005; 96372; 99285; J0696; 87106; 87186

== ENCOUNTER 2020-09-16 16:18 | Inpatient (IN) | payer MEDICARE ==
[~2020-09-16] VITALS: Ht 157.5 cm; Wt 81.5 kg
[~2020-09-16 16:18] MED LIST changes: -ALPR0.5T6 PO; +ALPR0.5T93 PO; -CYCL-259 PO; +CYCL10TA2 PO; +HYDR-1067 PO; -HYDR-3240 PO; -HYDR-3245 PO; +HYDR1TAB53 PO; -LISI40TA PO; +LISI40TA9 PO
[2020-09-16 18:34] LABS: BASOPHILS % (AUTO) 1 % (0-1); EOSINOPHILS % (AUTO) 2 % (1-7); LYMPHOCYTES % (AUTO) 19 % (22-44); MEAN CORPUSCULAR HEMOGLOBIN 33.5 pg (27.0-34.8); MEAN CORPUSCULAR HGB CONC 32.8 g/dL (32.4-35.8); MEAN PLATELET VOLUME 7.9 fL (7.4-10.4); MONOCYTES % (AUTO) 9 % (2-9); NEUTROPHILS % (AUTO) 70 % (42-75); PLATELET COUNT 206 x10^3/uL (130-400); RED BLOOD COUNT 3.55 x10^6/uL (3.82-5.3); RED CELL DISTRIBUTION WIDTH 16.6 % (9.6-15.2)
[2020-09-16 18:43] LABS: ALANINE AMINOTRANSFERASE 39 U/L (12-78); ALBUMIN 3.6 g/dL (3.4-5.0); ANION GAP 12 mmol/L (5-15); CALCIUM 9.3 mg/dL (8.5-10.1); CHLORIDE 98 mmol/L (98-107)
[2020-09-16 18:46] LABS: ALKALINE PHOSPHATASE 75 U/L (45-117); BILIRUBIN,TOTAL 0.4 mg/dL (0.2-1.0); CREATININE 7.01 mg/dL (0.55-1.02); TOTAL PROTEIN 7.8 g/dL (6.4-8.2)
[2020-09-16 19:04] LABS: MD NO
--- NOTE | 2020-09-16 20:20 | NUR ---
BP remains high. in NAD. call pressley in reach. patient states pain "comes and goes". no further needs at this time. at bedside
[2020-09-16 20:45] LABS: MICROSCOPIC AUTO
--- NOTE | 2020-09-16 21:30 | NUR ---
patient resting in bed. at bedside. call pressley in reach. will continue to monitor
--- NOTE | 2020-09-16 22:38 | NUR ---
patient straight cath'd without problem. tolerated well. urine has multiple white flakes present. will send for analysis
[2020-09-16 23:13] LABS: MICROSCOPIC AUTO
--- NOTE | 2020-09-16 23:19 | NUR ---
patient resting in bed. in NAD. call pressley in reach. safety maintained.
[2020-09-16] MEDS ORDERED: AMLODIPINE 2.5 MG TABLET PO ONE (23:30)
[2020-09-16] MEDS ORDERED: ERTAPENEM 1 GM in SODIUM CHLORIDE 0.9% 50 ML IV ONE (23:30)
[2020-09-16] MEDS ORDERED: CARVEDILOL 6.25 MG TABLET PO ONE (23:30)
[2020-09-16] MEDS ORDERED: FLUCONAZOLE 50 MG TABLET PO ONE (23:30)
--- NOTE | 2020-09-17 00:06 | NUR ---
report given to chris for lunch relief
[2020-09-17] MEDS ORDERED: POLYETHYLENE GLYCOL 17 GM PACKET PO PRN (00:30)
[2020-09-17] MEDS ORDERED: FLUCONAZOLE 100MG/50ML 100 MG in BAG 1 EACH IVPB SCH (00:30)
[2020-09-17] MEDS ORDERED: BISACODYL 10 MG SUPP PR PRN (00:30)
[2020-09-17] MEDS ORDERED: CARVEDILOL 6.25 MG TABLET ONE (00:47)
--- NOTE | 2020-09-17 00:47 | NUR ---
spoke with Avtar childress APRN rgarding duplicate flucanazole orders PO and IV. he instructed me to not give PO and give IV dose instead. see emar
--- NOTE | 2020-09-17 01:15 | NUR ---
report given to litzy MIKE
[2020-09-17] MEDS: SEVELAMER CARBONATE 800MG TAB PO SCH ×4 (01:16→17:25)
--- NOTE | 2020-09-17 01:16 | NUR ---
patient worried about not getting amiodarone and eliquis. these are scheduled for the morning. i attempted to ask Avtar Quijano APRN but could not find him prior to transfer to inpatient. other BP meds were ordered for now. these were given in exception to fluconazole d/t invanz already infusing. Chelita MIKE notified of this concern of patient
[2020-09-17 01:36] VITALS: BP 152/65
[2020-09-17] MEDS: AMIODARONE 200 MG TABLET PO SCH ×2 (03:04→20:06)
[2020-09-17 05:12] LABS: BASOPHILS % (AUTO) 1 % (0-1); EOSINOPHILS % (AUTO) 2 % (1-7); LYMPHOCYTES % (AUTO) 17 % (22-44); MEAN CORPUSCULAR HEMOGLOBIN 33.7 pg (27.0-34.8); MEAN CORPUSCULAR HGB CONC 33.4 g/dL (32.4-35.8); MONOCYTES % (AUTO) 9 % (2-9); NEUTROPHILS % (AUTO) 71 % (42-75); PLATELET COUNT 179 x10^3/uL (130-400); RED BLOOD COUNT 3.04 x10^6/uL (3.82-5.3); RED CELL DISTRIBUTION WIDTH 16.4 % (9.6-15.2)
[2020-09-17 05:18] LABS: MD NO
[2020-09-17 05:27] LABS: ANION GAP 9 mmol/L (5-15); CALCIUM 8.9 mg/dL (8.5-10.1); CHLORIDE 102 mmol/L (98-107)
[2020-09-17 05:28] LABS: CREATININE 7.49 mg/dL (0.55-1.02)
[2020-09-17 07:28] VITALS: BP 154/72
[2020-09-17] MEDS: LEVOTHYROXINE 100 MCG TABLET PO SCH (08:35)
[2020-09-17] MEDS: AMLODIPINE 2.5 MG TABLET PO SCH ×2 (08:36→20:05)
[2020-09-17] MEDS: FUROSEMIDE 80 MG TABLET PO SCH ×2 (08:36→20:06)
[2020-09-17] MEDS: APIXABAN 2.5 MG TABLET PO SCH ×2 (08:36→20:05)
[2020-09-17] MEDS: CARVEDILOL 6.25 MG TABLET PO SCH ×2 (08:37→20:05)
[2020-09-17] MEDS: SENNA/DOCUSATE TABLET PO SCH (08:37)
[2020-09-17] MEDS: ONDANSETRON ODT 4 MG SL PRN (08:38)
[2020-09-17] MEDS: SODIUM CHLORIDE FLUSH 10ML SYR IVF SCH ×2 (09:00→20:06)
[2020-09-17] MEDS: INSULIN LISPRO 100 UNITS/ML, PEN SQ-INSULIN SCH ×2 (16:00→20:04)
[2020-09-17 17:22] VITALS: BP 150/67
[2020-09-17] MEDS: ACETAMINOPHEN 325 MG TABLET PO PRN (17:25)
[2020-09-17 19:58] VITALS: BP 144/75
[2020-09-17] MEDS: ATORVASTATIN 40 MG TABLET PO SCH (20:05)
[2020-09-18] MEDS ORDERED: ERTAPENEM 1 GM in SODIUM CHLORIDE 0.9% 50 ML IV SCH (00:30)
[2020-09-18] MEDS ORDERED: ERTAPENEM 0.5 GM in SODIUM CHLORIDE 0.9% 50 ML IV SCH (01:00)
[2020-09-18 01:16] VITALS: BP 119/61
[2020-09-18 05:20] LABS: BASOPHILS % (AUTO) 1 % (0-1); EOSINOPHILS % (AUTO) 3 % (1-7); LYMPHOCYTES % (AUTO) 21 % (22-44); MEAN CORPUSCULAR HEMOGLOBIN 33.3 pg (27.0-34.8); MEAN CORPUSCULAR HGB CONC 33.4 g/dL (32.4-35.8); MEAN PLATELET VOLUME 7.8 fL (7.4-10.4); MONOCYTES % (AUTO) 11 % (2-9); NEUTROPHILS % (AUTO) 65 % (42-75); PLATELET COUNT 184 x10^3/uL (130-400); RED BLOOD COUNT 3.33 x10^6/uL (3.82-5.3); RED CELL DISTRIBUTION WIDTH 16.1 % (9.6-15.2)
[2020-09-18 05:23] LABS: MD NO
[2020-09-18 05:30] LABS: ANION GAP 7 mmol/L (5-15); CALCIUM 8.8 mg/dL (8.5-10.1); CHLORIDE 99 mmol/L (98-107); CREATININE 4.28 mg/dL (0.55-1.02)
[2020-09-18] MEDS: LEVOTHYROXINE 100 MCG TABLET PO SCH (06:30)
[2020-09-18] MEDS: INSULIN LISPRO 100 UNITS/ML, PEN SQ-INSULIN SCH ×4 (07:00→21:00)
[2020-09-18 07:51] VITALS: BP 132/75
[2020-09-18] MEDS: CARVEDILOL 6.25 MG TABLET PO SCH ×2 (08:43→20:31)
[2020-09-18] MEDS: SENNA/DOCUSATE TABLET PO SCH ×2 (08:44→08:45)
[2020-09-18] MEDS: SODIUM CHLORIDE FLUSH 10ML SYR IVF SCH ×2 (08:44→20:31)
[2020-09-18] MEDS: SEVELAMER CARBONATE 800MG TAB PO SCH ×3 (08:44→17:00)
[2020-09-18] MEDS: FUROSEMIDE 80 MG TABLET PO SCH ×2 (08:44→20:31)
[2020-09-18] MEDS: APIXABAN 2.5 MG TABLET PO SCH ×2 (08:44→20:31)
[2020-09-18] MEDS: AMLODIPINE 2.5 MG TABLET PO SCH ×2 (08:44→20:31)
[2020-09-18] MEDS ORDERED: FLUCONAZOLE 100 MG TABLET PO SCH (09:00)
[2020-09-18] MEDS ORDERED: MEROPENEM 1 GM in SODIUM CHLORIDE 0.9% 100 ML IV SCH (10:30)
[2020-09-18 13:28] VITALS: BP 142/57
[2020-09-18] MEDS: ACETAMINOPHEN 325 MG TABLET PO PRN (15:28)
[2020-09-18 20:30] VITALS: BP 155/67
[2020-09-18] MEDS: ATORVASTATIN 40 MG TABLET PO SCH (20:31)
[2020-09-18] MEDS: AMIODARONE 200 MG TABLET PO SCH (20:31)
[2020-09-19 00:27] VITALS: BP 145/75
[2020-09-19 05:07] LABS: BASOPHILS % (AUTO) 1 % (0-1); EOSINOPHILS % (AUTO) 2 % (1-7); LYMPHOCYTES % (AUTO) 22 % (22-44); MEAN CORPUSCULAR HEMOGLOBIN 34.4 pg (27.0-34.8); MEAN CORPUSCULAR HGB CONC 33.7 g/dL (32.4-35.8); MEAN PLATELET VOLUME 7.8 fL (7.4-10.4); MONOCYTES % (AUTO) 13 % (2-9); NEUTROPHILS % (AUTO) 62 % (42-75); PLATELET COUNT 185 x10^3/uL (130-400); RED BLOOD COUNT 3.07 x10^6/uL (3.82-5.3); RED CELL DISTRIBUTION WIDTH 16.1 % (9.6-15.2)
[2020-09-19 05:11] LABS: MD NO
[2020-09-19 05:14] LABS: ANION GAP 9 mmol/L (5-15); CALCIUM 8.7 mg/dL (8.5-10.1); CHLORIDE 104 mmol/L (98-107)
[2020-09-19] MEDS: INSULIN LISPRO 100 UNITS/ML, PEN SQ-INSULIN SCH (07:00)
[2020-09-19] MEDS: LEVOTHYROXINE 100 MCG TABLET PO SCH (08:09)
[2020-09-19] MEDS: SEVELAMER CARBONATE 800MG TAB PO SCH ×3 (08:09→16:57)
[2020-09-19] MEDS: CARVEDILOL 6.25 MG TABLET PO SCH (08:09)
[2020-09-19] MEDS: SENNA/DOCUSATE TABLET PO SCH (08:09)
[2020-09-19] MEDS: APIXABAN 2.5 MG TABLET PO SCH (08:09)
[2020-09-19] MEDS: FUROSEMIDE 80 MG TABLET PO SCH (08:10)
[2020-09-19] MEDS: SODIUM CHLORIDE FLUSH 10ML SYR IVF SCH (08:10)
[2020-09-19 08:29] VITALS: BP 161/73
[2020-09-19] MEDS ORDERED: CIPROFLOXACIN 500 MG TABLET PO SCH (10:30)
[2020-09-19] MEDS: AMLODIPINE 2.5 MG TABLET PO SCH (11:17)
[2020-09-19 15:35] VITALS: BP 158/70
[2020-09-19] MEDS: ACETAMINOPHEN 325 MG TABLET PO PRN (16:57)
[2020-09-19] MEDS ORDERED: MEROPENEM 1 GM in SODIUM CHLORIDE 0.9% 100 ML IV SCH (17:00)
[2020-09-19 19:22] VITALS: BP 160/71
[2020-09-20] MEDS: AMIODARONE 200 MG TABLET PO SCH ×2 (01:22→20:45)
[2020-09-20] MEDS: FUROSEMIDE 80 MG TABLET PO SCH ×3 (01:22→20:45)
[2020-09-20] MEDS: ATORVASTATIN 40 MG TABLET PO SCH ×2 (01:22→20:44)
[2020-09-20] MEDS: APIXABAN 2.5 MG TABLET PO SCH ×3 (01:22→20:45)
[2020-09-20] MEDS: AMLODIPINE 2.5 MG TABLET PO SCH ×3 (01:22→20:45)
[2020-09-20] MEDS: SODIUM CHLORIDE FLUSH 10ML SYR IVF SCH ×3 (01:23→20:45)
[2020-09-20] MEDS: CARVEDILOL 6.25 MG TABLET PO SCH ×3 (01:23→20:44)
[2020-09-20] MEDS: MEROPENEM 500 MG in SODIUM CHLORIDE 0.9% 100 ML IV SCH (01:23)
[2020-09-20 01:56] VITALS: BP 134/71
[2020-09-20 07:22] VITALS: BP 118/70
[2020-09-20] MEDS: SENNA/DOCUSATE TABLET PO SCH (07:34)
[2020-09-20] MEDS: SEVELAMER CARBONATE 800MG TAB PO SCH ×3 (07:34→16:34)
[2020-09-20] MEDS: LEVOTHYROXINE 100 MCG TABLET PO SCH (07:34)
[2020-09-20 13:11] VITALS: BP 124/71
[2020-09-20 18:55] VITALS: BP 101/64
[2020-09-20 20:41] VITALS: BP 139/66
[2020-09-21 01:20] VITALS: BP 133/69
[2020-09-21] MEDS: MEROPENEM 500 MG in SODIUM CHLORIDE 0.9% 100 ML IV SCH (01:23)
[2020-09-21] MEDS: SEVELAMER CARBONATE 800MG TAB PO SCH ×4 (07:00→16:19)
[2020-09-21] MEDS: LEVOTHYROXINE 100 MCG TABLET PO SCH (07:27)
[2020-09-21] MEDS: APIXABAN 2.5 MG TABLET PO SCH ×2 (07:27→21:16)
[2020-09-21] MEDS: SODIUM CHLORIDE FLUSH 10ML SYR IVF SCH ×2 (07:28→21:16)
[2020-09-21] MEDS: SENNA/DOCUSATE TABLET PO SCH (07:30)
[2020-09-21 07:31] VITALS: BP 156/76
[2020-09-21] MEDS: CARVEDILOL 6.25 MG TABLET PO SCH ×2 (07:47→21:00)
[2020-09-21] MEDS: FUROSEMIDE 80 MG TABLET PO SCH ×2 (07:48→21:15)
[2020-09-21] MEDS: AMLODIPINE 2.5 MG TABLET PO SCH ×2 (07:48→21:00)
[2020-09-21] MEDS: ACETAMINOPHEN 325 MG TABLET PO PRN (10:42)
[2020-09-21 14:15] VITALS: BP 102/64
[2020-09-21 14:59] VITALS: BP 127/72
[2020-09-21] MEDS: ONDANSETRON ODT 4 MG SL PRN (14:59)
[2020-09-21 19:51] VITALS: BP 113/66
[2020-09-21 21:14] VITALS: BP 117/69
[2020-09-21] MEDS: AMIODARONE 200 MG TABLET PO SCH (21:16)
[2020-09-21] MEDS: ATORVASTATIN 40 MG TABLET PO SCH (21:16)
[2020-09-22] MEDS: MEROPENEM 500 MG in SODIUM CHLORIDE 0.9% 100 ML IV SCH (01:22)
[2020-09-22 01:58] VITALS: BP 117/72
[2020-09-22 06:59] VITALS: BP 129/75
[2020-09-22] MEDS: LEVOTHYROXINE 100 MCG TABLET PO SCH (07:52)
[2020-09-22] MEDS: SEVELAMER CARBONATE 800MG TAB PO SCH ×3 (07:52→17:03)
[2020-09-22] MEDS: AMLODIPINE 2.5 MG TABLET PO SCH ×2 (07:53→21:45)
[2020-09-22] MEDS: APIXABAN 2.5 MG TABLET PO SCH (07:53)
[2020-09-22] MEDS: CARVEDILOL 6.25 MG TABLET PO SCH ×2 (07:53→21:45)
[2020-09-22] MEDS: FUROSEMIDE 80 MG TABLET PO SCH ×2 (07:53→21:45)
[2020-09-22] MEDS: SENNA/DOCUSATE TABLET PO SCH (07:53)
[2020-09-22] MEDS: SODIUM CHLORIDE FLUSH 10ML SYR IVF SCH ×2 (07:54→21:46)
[2020-09-22 14:24] VITALS: BP 135/74
[2020-09-22 21:37] VITALS: BP 132/74
[2020-09-22] MEDS: AMIODARONE 200 MG TABLET PO SCH (21:45)
[2020-09-22] MEDS: ACETAMINOPHEN 325 MG TABLET PO PRN (21:45)
[2020-09-22] MEDS: ATORVASTATIN 40 MG TABLET PO SCH (21:46)
[2020-09-23 00:36] VITALS: BP 121/69
[2020-09-23] MEDS: MEROPENEM 500 MG in SODIUM CHLORIDE 0.9% 100 ML IV SCH (01:01)
[2020-09-23 05:04] LABS: ALANINE AMINOTRANSFERASE 34 U/L (12-78); ALBUMIN 2.7 g/dL (3.4-5.0); ANION GAP 12 mmol/L (5-15); C-REACTIVE PROTEIN, QUANT 0.15 mg/dL (0.02-0.49); CALCIUM 8.7 mg/dL (8.5-10.1); CHLORIDE 103 mmol/L (98-107); CREATININE 5.97 mg/dL (0.55-1.02)
[2020-09-23 05:05] LABS: BASOPHILS % (AUTO) 1 % (0-1); EOSINOPHILS % (AUTO) 2 % (1-7); LYMPHOCYTES % (AUTO) 23 % (22-44); MEAN CORPUSCULAR HEMOGLOBIN 34.1 pg (27.0-34.8); MEAN CORPUSCULAR HGB CONC 33.9 g/dL (32.4-35.8); MEAN PLATELET VOLUME 8.7 fL (7.4-10.4); MONOCYTES % (AUTO) 12 % (2-9); NEUTROPHILS % (AUTO) 62 % (42-75); PLATELET COUNT 182 x10^3/uL (130-400); RED BLOOD COUNT 3.19 x10^6/uL (3.82-5.3); RED CELL DISTRIBUTION WIDTH 15.8 % (9.6-15.2)
[2020-09-23 05:06] LABS: ALKALINE PHOSPHATASE 62 U/L (45-117); BILIRUBIN,TOTAL 0.5 mg/dL (0.2-1.0); TOTAL PROTEIN 6.4 g/dL (6.4-8.2)
[2020-09-23 05:15] LABS: MD NO
[2020-09-23] MEDS: SEVELAMER CARBONATE 800MG TAB PO SCH ×3 (07:00→16:34)
[2020-09-23 07:10] VITALS: BP 136/73
[2020-09-23] MEDS: AMLODIPINE 2.5 MG TABLET PO SCH ×2 (07:47→21:31)
[2020-09-23] MEDS: CARVEDILOL 6.25 MG TABLET PO SCH ×2 (07:48→21:30)
[2020-09-23] MEDS: FUROSEMIDE 80 MG TABLET PO SCH ×2 (07:51→21:31)
[2020-09-23] MEDS: LEVOTHYROXINE 100 MCG TABLET PO SCH (07:51)
[2020-09-23] MEDS: SODIUM CHLORIDE FLUSH 10ML SYR IVF SCH ×2 (07:51→21:31)
[2020-09-23] MEDS ORDERED: MIDAZOLAM 1 MG/ML, 5ML ONE (10:49)
[2020-09-23] MEDS ORDERED: FLUMAZENIL 0.1 MG/1 ML, 5ML ONE (10:49)
[2020-09-23] MEDS ORDERED: LIDOCAINE 1%, 10ML ONE (10:50)
[2020-09-23] MEDS: ACETAMINOPHEN 325 MG TABLET PO PRN ×2 (12:50→18:07)
[2020-09-23 14:16] VITALS: BP 122/67
[2020-09-23 20:45] VITALS: BP 144/70
[2020-09-23] MEDS: ATORVASTATIN 40 MG TABLET PO SCH (21:30)
[2020-09-23] MEDS: AMIODARONE 200 MG TABLET PO SCH (21:31)
[2020-09-24 00:23] VITALS: BP 114/69
[2020-09-24] MEDS: MEROPENEM 500 MG in SODIUM CHLORIDE 0.9% 100 ML IV SCH (01:35)
[2020-09-24 06:35] VITALS: BP 152/77
[2020-09-24] MEDS: SEVELAMER CARBONATE 800MG TAB PO SCH ×3 (08:00→18:00)
[2020-09-24] MEDS: FUROSEMIDE 80 MG TABLET PO SCH (08:21)
[2020-09-24] MEDS: LEVOTHYROXINE 100 MCG TABLET PO SCH (08:21)
[2020-09-24] MEDS: AMLODIPINE 2.5 MG TABLET PO SCH (08:22)
[2020-09-24] MEDS: SODIUM CHLORIDE FLUSH 10ML SYR IVF SCH (08:22)
[2020-09-24] MEDS: CARVEDILOL 6.25 MG TABLET PO SCH (08:24)
[2020-09-24] MEDS ORDERED: APIXABAN 2.5 MG TABLET PO SCH (09:00)
[2020-09-24 14:09] VITALS: BP 152/66
[2020-09-24] MEDS ORDERED: MERO500V22 IV (16:09)
[2020-09-24] MEDS ORDERED: MEROPENEM 500 MG in SODIUM CHLORIDE 0.9% 100 ML IV SCH (16:30)
[2020-09-24] MEDS: ACETAMINOPHEN 325 MG TABLET PO PRN (16:36)
[2020-09-24] MEDS: ONDANSETRON ODT 4 MG SL PRN (17:58)
== END 2020-09-24 19:03 | disposition home or self-care (01) | DRG 689 ==
LOC: ED 19:00 → EDIP 23:32 → 5SO 09-17 01:20 → 3N 09-20 01:45
PROVIDERS: ADMIT Internal Medicine; ATTEND Hospitalist
PROC: 0T9B70Z Drainage of Bladder with Drainage Device, Via Natural or Artificial Opening (ICD-10-PCS; principal; 2020-09-16)
PROC: 0JH63XZ Insertion of Tunneled Vascular Access Device into Chest Subcutaneous Tissue and Fascia, Percutaneous Approach (ICD-10-PCS; 2020-09-23)
PROC: 02HV33Z Insertion of Infusion Device into Superior Vena Cava, Percutaneous Approach (ICD-10-PCS; 2020-09-23)
PROC: B5181ZA Fluoroscopy of Superior Vena Cava using Low Osmolar Contrast, Guidance (ICD-10-PCS; 2020-09-23)
PROC: B544ZZA Ultrasonography of Left Jugular Veins, Guidance (ICD-10-PCS; 2020-09-23)
DX: N39.0 Urinary tract infection, site not specified (principal); N18.6 End stage renal disease; I50.32 Chronic diastolic (congestive) heart failure; I13.2 Hypertensive heart and chronic kidney disease with heart failure and with stage 5 chronic kidney disease, or end stage renal disease; D68.69 Other thrombophilia; Z16.12 Extended spectrum beta lactamase (ESBL) resistance; I48.0 Paroxysmal atrial fibrillation; Z99.2 Dependence on renal dialysis; B96.1 Klebsiella pneumoniae [K. pneumoniae] as the cause of diseases classified elsewhere; B96.5 Pseudomonas (aeruginosa) (mallei) (pseudomallei) as the cause of diseases classified elsewhere; D63.1 Anemia in chronic kidney disease; D75.89 Other specified diseases of blood and blood-forming organs; E03.9 Hypothyroidism, unspecified; E11.22 Type 2 diabetes mellitus with diabetic chronic kidney disease; E66.9 Obesity, unspecified; E78.00 Pure hypercholesterolemia, unspecified; E78.5 Hyperlipidemia, unspecified; F41.9 Anxiety disorder, unspecified; M48.061 Spinal stenosis, lumbar region without neurogenic claudication; Z96.653 Presence of artificial knee joint, bilateral; K21.9 Gastro-esophageal reflux disease without esophagitis; M10.9 Gout, unspecified; Z68.32 Body mass index [BMI] 32.0-32.9, adult; Z82.49 Family history of ischemic heart disease and other diseases of the circulatory system; Z82.5 Family history of asthma and other chronic lower respiratory diseases; Z83.3 Family history of diabetes mellitus; Z90.49 Acquired absence of other specified parts of digestive tract
CPT/HCPCS: 36415; 36556; 77001; 80048; 80053; 81001; 82962; 85025; 85651; 86140; 87040; 87077; 87086; 87186; 90935; 99156; G0378; J1335; J2185; J2250; Q0162; C1751; J1450